=== PATIENT | female | born 1995 | race Caucasian/White ===

== ENCOUNTER 2019-12-02 17:48 | Emergency (ER) | payer BC, SELFPAY ==
[2019-12-02 17:49] VITALS: BP 116/69; PULSE 95; RESP 18; TEMP 36.3; O2SAT 98; BMI 35.9
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
[2019-12-02 18:37] LABS: Anion Gap 3 (5-15); BUN 9 mg/dL (7-18); BUN/Creat Ratio 10.9 RATIO (10-20); Calcium,Total 9.7 mg/dL (8.5-10.1); Chloride 108 mmol/L (98-107); Creatinine, Serum 0.82 mg/dL (0.55-1.02); EST Glomerular Filtration Rate 92 mL/min (>60); Est Glom Filt Rate - Afr Amer 111 mL/min (>60); Estimated Creatinine Clearance 92.93 ml/min; Glucose 83 mg/dL (74-106); Potassium 3.6 mmol/L (3.5-5.1); Sodium Level 139 mmol/L (136-145)
[2019-12-02 18:55] LABS: Amphetamine Urine VISTA NEGATIVE (<1000 ng/mL); Barbiturate Urine VISTA NEGATIVE (< 200 ng/mL); Benzodiazepine Urine VISTA NEGATIVE (< 200 ng/mL); Cocaine Urine VISTA NEGATIVE (< 300 ng/mL); Ecstacy Urine VISTA NEGATIVE (< 500 ng/mL); Methadone Urine VISTA NEGATIVE (< 300 ng/mL); PCP Urine VISTA NEGATIVE (< 25 ng/mL); THC Urine VISTA POSITIVE (< 50 ng/mL); Vista UDS pH Range 6
[2019-12-02 18:59] LABS: Absolute Lymphocyte Count 2.52 X10^3/uL (0.83-4.51); Basophil# 0.05 X10^3/uL; Basophil% 0.4 % (0-1); Eosinophil# 0.07 X10^3/uL; Eosinophils% 0.6 % (0-5); Hematocrit 43.7 % (37-47); Lymphocyte # 2.52 X10^3/ul (4.0); Lymphocyte % 22.1 % (19-41); Mean Corpuscular Hgb 27.8 pg (27.0-32.0); Mean Corpuscular Volume 86.7 fL (81-99); Mean Platelet Vol. 9.8 fl (6.2-12.0); Monocyte# 0.74 X10^3/uL; Monocyte% 6.5 % (0-10); NRBC Flagged by Analyzer 0 % (0-5); Neutrophil # 8.02 X10^3/uL (2.7-7.7); Neutrophil % 70.2 % (47-70); Platelet Count 322 K/mm3 (150-450); RBC Distribution Width SD 43.9 fl (35.1-43.9); Red Blood Count 5.04 M/mm3 (4.2-5.4); White Blood Count 11.4 K/mm3 (4.4-11.0)
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
[2019-12-02 19:34] LABS: Internal QC Validated? YES +Cl - CLEAR BKGD; Pregnancy, Serum, hCG Quali. NEGATIVE Negative
[2019-12-02 19:35] LABS: Alcohol, Blood (Medical)-Serum < 3.0 mg/dL
[2019-12-02 19:39] VITALS: RESP 18
--- NOTE | 2019-12-02 19:42 | ED.DEP ---
ED Disposition - Plan for ED Patient: Instructions: ED Depression Referrals: Care Physician,No Primary [Primary Care Provider] - Counseling,Center [GROUP OF PHYSICIANS] -
== END 2019-12-02 19:58 | disposition home or self-care (01) ==
LOC: ED 18:54
PROVIDERS: Emergency Provider Emergency Medicine
DX: F32.9 Major depressive disorder, single episode, unspecified (principal); F12.90 Cannabis use, unspecified, uncomplicated; R45.851 Suicidal ideations
CPT/HCPCS: 36415; 80048; 80307; 80320; 84703; 85025; 99282; G0480

== ENCOUNTER 2023-06-19 13:41 | Emergency (ER) | payer BC, SELFPAY ==
[2023-06-19 13:41] VITALS: BP 116/102; PULSE 109; RESP 16; TEMP 36.6; O2SAT 98; BMI 36.0
[2023-06-19 14:32] VITALS: BP 116/64; PULSE 94; RESP 14; O2SAT 98
[2023-06-19] MEDS: 0.9% Normal Saline (1000mL) 1,000 ML 1000 ML IV (15:10)
[2023-06-19] MEDS: 0.9% Normal Saline (1000mL) 1,000 ML 150 ML IV (15:25)
[2023-06-19 15:26] LABS: Absolute Lymphocyte Count 2.44 X10^3/uL (0.83-4.51); Absolute Neutrophil Count 5.7 X10^3/uL (2.0-7.7); Basophil# 0.07 X10^3/uL; Basophil% 0.8 % (0-1); Eosinophil# 0.09 X10^3/uL; Hematocrit 42.9 % (37-47); Hemoglobin 13.7 g/dL (12.0-15.0); Lymphocyte # 2.44 X10^3/ul (0.83-4.51); Lymphocyte % 27.2 % (19-41); Mean Corp Hgb Conc 31.9 g/dL (32-36); Mean Corpuscular Hgb 27.6 pg (27.0-32.0); Mean Corpuscular Volume 86.5 fL (81-99); Mean Platelet Vol. 9.5 fl (6.2-12.0); Monocyte% 6.7 % (0-10); NRBC Flagged by Analyzer 0 % (0-5); Neutrophil # 5.74 X10^3/uL (2.7-7.7); Neutrophil % 64.1 % (47-70); Platelet Count 282 K/mm3 (150-450); RBC Distribution Width CV 13.3 % (11.6-14.6); RBC Distribution Width SD 41.4 fl (35.1-43.9); Red Blood Count 4.96 M/mm3 (4.2-5.4)
[2023-06-19 15:36] LABS: Internal QC Validated? YES +Cl - CLEAR BKGD; Pregnancy, Serum, hCG Quali. NEGATIVE Negative
[2023-06-19 15:40] LABS: Anion Gap 3 (5-15); BUN 12 mg/dL (7-18); BUN/Creat Ratio 17.1 RATIO (10-20); Calcium,Total 9.3 mg/dL (8.5-10.1); Chloride 109 mmol/L (98-107); EST Glomerular Filtration Rate 107 mL/min (>60); Est Glom Filt Rate - Afr Amer 130 mL/min (>60); Estimated Creatinine Clearance 132.57 ml/min; Glucose 88 mg/dL (74-106); Potassium 4.6 mmol/L (3.5-5.1); Sodium Level 139 mmol/L (136-145)
[2023-06-19 16:00] VITALS: BP 114/71; PULSE 83; RESP 14; O2SAT 99
--- NOTE | 2023-06-19 16:00 | US_ITS ---
STUDY: ULTRASOUND TRANSVAGINAL CLINICAL: Female, 27 years old. menorrhagia TECHNIQUE: Transvaginal COMPARISON: None. FINDINGS: Normal uterine size measuring 8.2 x 4.6 x 3.8 cm in maximal craniocaudal dimension. There are no myometrial masses. Endometrial echoes in the lower uterine segment measure as much as 17 mm and are heterogeneous and irregular possibly with small cystic structures. This could be thrombus/hematoma. Primary endometrial process is not excluded and direct visualization/sampling is recommended. Normal right ovary, measuring 2.7 x 1.9 x 1.3 cm. There are multiple follicles without a dominant cyst. Normal blood flow. Normal left ovary, measuring 2.4 x 2.0 x 1.8 cm. There are multiple follicles without a dominant cyst. Normal blood flow. There is mild free fluid in the pelvis. Polycystic ovary disease: No. US/Transvaginal Non- IMPRESSION: Heterogeneous thickened and irregular endometrial echoes in the right lower uterine segment. This requires direct visualization and sampling should be considered. Electronically Signed: Harry Leonard MD at 18:08 EDT ,
--- NOTE | 2023-06-19 18:26 | ED.VIS.FEGU ---
HPI HPI - Female History of Present Illness Chief Complaint: Vag Bleeding Informant: patient Narrative Narrative: Patient present secondary vaginal bleeding. She states her last menstrual cycle started on May 23 and she has been bleeding ever since. She describes heavy bleeding going through several pads and passing clots. She presents today because she feels fatigued and somewhat lightheaded. She is also complaining of increased cramping. Patient has followed with Rosio Waldron at the [facility] office. She states she sent them a message to get an appointment shortly after her symptoms started, over has not heard back. PFSH PFSH Medical History no medical history no medical history Home Medications NK 12/02/19 [History Last Taken Unknown] Allergy/AdvReac Type Severity Reaction Status Date / Time No Known Allergies Allergy Verified 06/19/23 13:44 Social History Smoking Status: Current some day smoker tobacco type: cigarettes ROS ROS ED Constitutional Constitutional ED: Denies chills or fever(s) Eyes Eyes: Denies change in vision or discharge from eye(s) ENT ENT ED: Denies discharge from eye(s), rhinorrhea or sore throat Cardiovascular Cardiovascular: Denies chest pain or palpitations Respiratory/Chest Respiratory/Chest: Denies cough or dyspnea Gastrointestinal Gastrointestinal: Reports abdominal pain; Denies diarrhea, nausea or vomiting Genitourinary Genitourinary ED: Denies dysuria Musculoskeletal Musculoskeletal: Denies back pain or extremity pain Integumentary Denies Abrasions or rash Neurologic Neurologic: Reports weakness; Denies headache(s) Psychiatric Psychiatric: Denies anxiety or depression Allergic/Immunologic Allergic/Immunologic ED: Denies lip swelling or urticaria EXAM Physical Exam Const Vital Signs: 06/19/23 13:41 06/19/23 14:32 06/19/23 16:00 Temperature 98 F Temperature Source Temporal Pulse Rate 109 H 94 83 Respiratory Rate 16 14 14 Blood Pressure 116/102 H 116/64 114/71 Blood Pressure Mean 106 81 85 Pulse Ox 98 98 99 Oxygen Delivery Method Room Air Room Air Room Air Positive well nourished and well developed General Appearance ED: well developed HEENT Reports normocephalic and head/scalp atraumatic Eyes PERRL and EOMs intact bilaterally Neck supple Chest Wall inspection of chest normal and palpation of chest normal Resp normal respiratory effort and clear to auscultation bilaterally Cardio regular rate and regular rhythm GI GI Narrative: Abdomen soft with mild tenderness in the lower abdomen. No guarding or rebound. Active bowel sounds are noted. Palpation: soft Back/Spine no CVA tenderness Extremity normal to inspection Neuro oriented x3 and no sensory deficits noted Sensorium / Orientation: alert Motor Exam: strength 5/5 throughout Psych mental status grossly normal Skin no rashes or lesions noted MDM MDM MDM Narrative Medical decision making narrative: Patient given a liter of IV fluids. Labwork obtained to evaluate for leukocytosis, anemia, and electrolyte derangement. Pelvic ultrasound obtained to evaluate for endometrial thickness or mass. Lab Data Labs: Laboratory Results - last 24 hr 06/19/23 15:11 WBC 9.0 RBC 4.96 Hgb 13.7 Hct 42.9 MCV 86.5 MCH 27.6 MCHC 31.9 L RDW Std Deviation 41.4 RDW Coeff of Elizabeth 13.3 Plt Count 282 MPV 9.5 Immature Gran % (Auto) 0.200 Neut % (Auto) 64.1 Lymph % (Auto) 27.2 [place] % (Auto) 6.7 Eos % (Auto) 1.0 Baso % (Auto) 0.8 Absolute Neuts (auto) 5.7 Absolute Lymphs (auto) 2.44 Nucleated RBC % 0 Sodium 139 Potassium 4.6 Chloride 109 H Carbon Dioxide 27.0 Anion Gap 3 L BUN 12 Creatinine 0.70 Estim Creat Clear Calc 132.57 Est GFR (MDRD) Af Amer 130 Est GFR (MDRD) Non-Af 107 BUN/Creatinine Ratio 17.1 Glucose 88 Calcium 9.3 Serum , Qual NEGATIVE Radiography Diagnostic Testing: Clinical Impression(s) from Imaging Studies Transvaginal US 06/19/23 16:00 IMPRESSION: Heterogeneous thickened and irregular endometrial echoes in the right lower uterine segment. This requires direct visualization and sampling should be considered. Electronically Signed: Harry Leonard MD at 18:08 EDT , Treatment and Re-Evaluation Narrative: CBC is normal white count at 9 with a hemoglobin of 13.7. This is consistent with her prior values. Chemistry studies are unremarkable. test is negative. Pelvic ultrasound reveals a heterogeneous thickened and irregular endometrial echo in the right lower uterine segment. This requires direct visualization and sampling should be considered. Test results discussed with Dr. Tim, on-call for [facility]. With patient having stable vital signs and normal hemoglobin she will be discharged to call the office tomorrow morning for close follow-up. Patient comfortable with this plan. Discharge Plan Triage Chief Complaint: Vag Bleeding ED Provider: Olive Schreiber Dx/Rx/DC Orders Clinical Impression: Menorrhagia Instructions: ED Dysfunctional Uterine Bleeding Prescriptions: No Action NK Primary Care Provider: Rosio Reynolds Referrals: Rosio Reynolds MD [Primary Care Provider] - Rosio Waldron NP, SHADOWGRAPH SCALE OPERATOR-C [Non-Staff] - As soon as possible Disposition Disposition: Home, Self Care
[2023-06-19 18:49] VITALS: BP 127/66; PULSE 76; RESP 15; TEMP 36.4; O2SAT 99
== END 2023-06-19 18:52 | disposition home or self-care (01) ==
PROVIDERS: Emergency Provider Emergency Medicine; PCP Family Medicine; Visit Provider Emergency Medicine
DX: N92.0 Excessive and frequent menstruation with regular cycle (principal); F17.210 Nicotine dependence, cigarettes, uncomplicated
CPT/HCPCS: 76830; 80048; 84703; 85025; 96360; 96361; 99283; J7030; A4216

== ENCOUNTER 2025-01-12 09:35 | Emergency (ER) | payer SELFPAY ==
[2025-01-12 09:36] VITALS: BP 140/89; PULSE 65; RESP 16; TEMP 36.3; O2SAT 97; BMI 38.8
--- NOTE | 2025-01-12 10:01 | CT_ITS ---
PROCEDURE: ABDOMEN/PELVIS WITHOUT CONT 01/12/2025 REASON FOR EXAM: LEFT FLANK PAIN TECHNIQUE: Procedure Code: [id number] Modality: CT Procedure: ABDOMEN/PELVIS WITHOUT CONT Noncontrast technique limits evaluation of the abdominal and pelvic viscera. Coronal and Sagittal reconstruction series were provided. One or more dose reduction techniques were used (e.g., Automated exposure control, adjustment of the mA and/or kV according to patient size, use of iterative reconstruction technique). RADIATION DOSE SUMMARY: DLP: 738 mGycm FINDINGS: The lung bases are clear. There is no focal consolidation or effusion. The unenhanced appearance of the liver, pancreas, gallbladder, biliary tree, spleen and adrenal glands reveals no abnormality. No retroperitoneal lymphadenopathy is present. There is mild left hydronephrosis with left hydroureter and periureteral stranding. This is secondary to a small stone in the distal left ureter measuring 4.5 mm. Additional small 2-3 mm punctate calculi noted within both kidneys. There is a nonobstructing stone in the lower pole of the right kidney measuring 4 mm. The bowel is unremarkable without any obstruction or acute inflammatory process. Normal appendix is seen in the right lower quadrant. The uterus and adnexa are within normal limits. Urinary bladder is decompressed. Osseous structures reveal no destructive process or acute fracture. There is mild scoliosis. Transitional anatomy seen on the right with the right transverse process articulating with the sacrum. No soft tissue abnormality CT/Abdomen/Pelvis without Cont IMPRESSION: 4.5 mm stone in the distal left ureter with mild left hydronephrosis. Bilateral nonobstructing renal calculi. Reading Location: [facility]
--- NOTE | 2025-01-12 10:02 | EDS_ITS ---
HPI History of Present Illness Chief Complaint: Back Informant: patient Onset/Context/Timing Onset: Today Context: Sudden Onset Timing: Continuous Quality: Sharp, stabbing Location: Left flank Worsened by: Nothing Relieved by: Nothing Narrative Narrative: Patient presents with left flank and back pain that began earlier this morning. Patient states she woke up with it. Patient describes the pain as stabbing and sharp. Patient states pain radiates to her lower abdomen. Patient states nothing makes it worse and nothing makes it better. Patient admits to some subjective chills. Patient admits to nausea and vomiting. Patient admits to some urinary urgency but denies any dysuria or hematuria. Patient denies any diarrhea. PFSH PFSH Home Medications ?Medication ?Instructions ?Recorded ?Last Taken ?Type hydrocodone-acetaminophen 5-325mg 1 tab PO Q6H PRN PRN Pain 3 days 01/12/25 Unknown Rx 5mg-325mg #10 TABLETS Allergy/AdvReac Type Severity Reaction Status Date / Time No Known Allergies Allergy Verified 01/12/25 09:37 Surgical History Hx of tympanostomy tubes Social History (Updated 01/12/25 @ 10:[address] Paras Knowles, DO) Smoking Status: Current some day smoker tobacco type: cigarettes substance use type: marijuana ROS ROS ED Constitutional Constitutional ED: Reports chills and subjective; Denies fever(s) Eyes Eyes: Denies blurry vision or change in vision ENT ENT ED: Denies rhinorrhea or sore throat Cardiovascular Cardiovascular: Denies chest pain or palpitations Respiratory/Chest Respiratory/Chest: Denies cough or dyspnea Gastrointestinal Gastrointestinal: Reports nausea and vomiting Genitourinary Genitourinary ED: Denies dysuria or hematuria Musculoskeletal Musculoskeletal: Reports back pain; Denies neck pain Integumentary Denies abscess or rash Neurologic Neurologic: Denies headache(s) or weakness Allergic/Immunologic Allergic/Immunologic ED: Denies mouth swelling or urticaria EXAM Physical Exam Const Vital Signs: 01/12/25 09:36 01/12/25 11:57 Temperature 97.3 F L Temperature Source Temporal Pulse Rate 65 83 Respiratory Rate 16 16 Blood Pressure 140/89 H 124/69 H Blood Pressure Mean 106 87 Pulse Ox 97 100 Oxygen Delivery Method Room Air Room Air Positive well nourished and well developed General Appearance ED: well developed and NAD HEENT Reports moist mucous membranes Neck supple and no JVD Resp normal respiratory effort and clear to auscultation bilaterally Cardio regular rate and regular rhythm GI non-distended Palpation: soft and tender LLQ and suprapubic; Negative for guarding or rebound tenderness present Back/Spine General Back: CVA tenderness left Neuro oriented x3, CN's II-XII intact bilaterally and no sensory deficits noted Sensorium / Orientation: alert Motor Exam: strength 5/5 throughout Psych mental status grossly normal MDM MDM MDM Narrative Medical decision making narrative: Differential diagnosis includes ureteral calculus, pyelonephritis, urinary tract infection, ectopic , electrolyte abnormality, dehydration, diverticulitis, colitis, and anxiety. CBC will be obtained to assess for leukocytosis and anemia. Comprehensive metabolic profile will be obtained to assess for hepatic function, renal function, and electrolyte abnormality. Urinalysis will be obtained to assess for urinary tract infection and hematuria. Serum hCG will be obtained to assess for . CT scan of the abdomen and pelvis will be obtained to assess for ureteral calculus, pyelonephritis, diverticulitis, and colitis. Lab Data Attestation: I reviewed the patient's lab results. Lab results narrative: CBC was reviewed. There is a mild leukocytosis of 11.9. The remainder is within normal limits. Comprehensive metabolic profile was reviewed and was within normal limits. Serum hCG was reviewed and was negative. Urinalysis was reviewed. There is no evidence of urinary tract infection. Occult blood was 250 but there were 0 red blood cells noted. Labs: Laboratory Results - last 24 hr 01/12/25 01/12/25 10:08 10:10 WBC 11.9 H RBC 4.93 Hgb 13.9 Hct 40.9 MCV 83.0 MCH 28.2 MCHC 34.0 RDW Std Deviation 40.1 RDW Coeff of Elizabeth 13.2 Plt Count 310 MPV 9.7 Immature Gran % (Auto) 0.200 Neut % (Auto) 79.2 H Lymph % (Auto) 14.1 L [place] % (Auto) 5.8 Eos % (Auto) 0.3 Baso % (Auto) 0.4 Absolute Neuts (auto) 9.4 H Absolute Lymphs (auto) 1.68 Nucleated RBC % 0 Sodium 140 Potassium 3.9 Chloride 106 Carbon Dioxide 19.4 L Anion Gap 15 BUN 13 Creatinine 0.82 Estim Creat Clear Calc 120.23 Est GFR (MDRD) Non-Af 100 BUN/Creatinine Ratio 15.7 Glucose 130 H Calcium 9.9 Total Bilirubin 0.31 AST 21 ALT 27 Alkaline Phosphatase 70 Total Protein 7.6 Albumin 4.7 Globulin 2.9 Albumin/Globulin Ratio 1.6 Serum , Qual NEGATIVE Urine Color Yellow Urine Clarity Cloudy Urine pH 5.0 Ur Specific Mallard 1.030 Urine Protein 30 H Urine Glucose (UA) Normal Urine Ketones 15 H Urine Occult Blood 250 H Urine Nitrite Negative Urine Bilirubin Negative Urine Urobilinogen 1 H Ur Leukocyte Esterase Negative Urine RBC 0 SEEN Urine WBC 0 SEEN Ur Squamous Epith Cells 0-5 SEEN Amorphous Sediment 3+ Urine Bacteria 0 SEEN Urine Mucus 0 SEEN Radiography Diagnostic Testing: Clinical Impression(s) from Imaging Studies Abdomen/Pelvis CT 01/12/25 10:01 IMPRESSION: 4.5 mm stone in the distal left ureter with mild left hydronephrosis. Bilateral nonobstructing renal calculi. Reading Location: [facility] CT scan of the abdomen and pelvis was obtained. There is a 4.5 mm stone in the left distal ureter with mild left hydronephrosis. There are bilateral nonobstructing renal calculi. There is no free air or free fluid. There is no other acute abnormality noted. This was interpreted by the radiologist and was also independently reviewed by myself. Treatment and Re-Evaluation :: Patient was given IV fluids, morphine, and Zofran. Patient was still having pain. Patient was given a dose of Toradol. Patient states her pain has markedly improved. Patient was advised of her findings. Patient was instructed to drink plenty of fluids. Patient was given a prescription for short course of Cord. Patient was advised that she could take ibuprofen as needed as well. Patient was instructed to follow-up with her primary care physician in 5 to 7 days. Patient was also given a referral for urology. Patient was instructed to return if worse in any way. Patient understood and was agreeable with the plan. All questions were answered. Discharge Plan Triage Chief Complaint: Back ED Provider: Paras Knowles Dx/Rx/DC Orders Clinical Impression: Calculus of distal left ureter, Elevated blood pressure reading Instructions: ED Kidney Stone with Pain Prescriptions: New hydrocodone-acetaminophen 5-325 mg tablet 1 tab PO Q6H PRN PRN (Reason: Pain) 3 Days Qty: 10 0RF Primary Care Provider: Care Physician,No Primary Referrals: Rosio Reynolds MD [Med Staff - Beef Killer, Family Practice] - 5-7 Days Pam Azar MD [Med Staff - Active Staff, Urology] - 3-5 Days if not improving Print Language: Belarusian Disposition Disposition: Home, Self Care
--- OUTSIDE RECORDS SUMMARY | 2025-01-12 10:10 | XMS RPT_ITS | CCD ---
Author Organization [facility] Care Team Providers Care Approver Name Role Phone Unavailable Primary Care Provider Rosio Mujica Primary Care Unavailable Olive Schreiber Attending Unavailable TRINIDAD RICHARDS Attending Unavailable SELF Referring Unavailable TRINIDAD RICHARDS Attending Unavailable TRINIDAD RICHARDS Referring Unavailable Unavailable Primary Care Provider MALIA Betancourt Attending Unavailable Medications Current Medications Medication Drug Class(es) Dates Sig (Normalized) Sig (Original) clindamycin 300 mg oral capsule (2 sources) Lincosamide Antibacterial Start: 05-29-2024 End: 06-05-2024 take 1 capsule by mouth twice daily clindamycin (Cleocin) 300 MG capsule Indications: Bacterial vaginosis Take 1 capsule (300 mg) by mouth 2 times daily for 7 days. 14 capsule 05/29/2024 06/05/2024 Active doxycycline hyclate 100 mg oral capsule (1 source) Tetracycline-class Drug Start: 05-31-2024 End: 06-07-2024 doxycycline (Vibramycin) 100 MG capsule Indications: Chlamydial infection Take 1 capsule (100 mg) by mouth 2 times daily for 7 days. Take with at least 8 ounces (large glass) of water, do not lie down for 30 minutes after EPT Waldemar Ascencio Jr. 03-28-1997 NKDA 14 capsule 05/31/2024 06/07/2024 Active doxylamine succinate 25 mg oral tablet (3 sources) Start: 05-29-2024 End: 06-28-2024 take 1 tablet by mouth once daily as needed for nausea doxylamine (Unisom) 25 MG tablet Indications: Missed menses , test positive Take 1 tablet (25 mg) by mouth Nightly as needed for nausea. 30 tablet 3 05/29/2024 06/28/2024 Active multivitamin () 27-0.8 MG tablet (3 sources) Start: 05-29-2024 take 1 tablet by mouth once daily multivitamin () 27-0.8 MG tablet Indications: Missed menses , test positive Take 1 tablet by mouth daily. 90 tablet 4 05/29/2024 Active pyridoxine hydrochloride 25 mg oral tablet (3 sources) Start: 05-29-2024 End: 08-27-2024 take 1 tablet by mouth every eight hours pyridoxine (Vitamin B-6) 25 MG tablet Indications: Missed menses , test positive Take 1 tablet (25 mg) by mouth every 8 hours. 90 tablet 3 05/29/2024 08/27/2024 Active terconazole 8 mg/ml vaginal cream (2 sources) Azole Antifungal Start: 05-29-2024 End: 06-01-2024 terconazole (Terazol 3) 0.8 % vaginal cream Indications: Vaginal yeast infection Insert 1 applicator into the vagina Nightly for 3 days. 20 g 2 05/29/2024 06/01/2024 Active Completed/Discontinued Medications Medication Drug Class(es) Dates Sig (Normalized) Sig (Original) azithromycin 500 mg oral tablet (1 source) Macrolide Antimicrobial Start: 05-29-2024 End: 05-29-2024 take 2 tablets by mouth once azithromycin (Zithromax) 500 MG tablet Indications: Chlamydia infection Take 2 tablets (1,000 mg) by mouth Once for 1 dose. 2 tablet 05/29/2024 05/29/2024 ethinyl estradiol 0.035 mg / norethindrone 1 mg oral tablet (3 sources) Estrogen Start: 06-06-2018 take 1 tablet by mouth once daily, then take [id number] 7 tablet by mouth once Norethindrone-Eth Estradiol (ORTHO-NOVUM , ,) 1-35 mg-mcg per tablet Indications: Breakthrough bleeding on OCPs Take 1 tablet by mouth once daily. 3 Package 3 06/06/2018 Active Comment on above: Take 1 tablet by mena th once daily. norethindrone acetate 5 mg oral tablet (3 sources) Start: 06-21-2023 End: 07-01-2023 take 1 tablet by mouth once daily norethindrone (AYGESTIN) 5 mg tablet Take 1 tablet by mouth once daily for 10 days. 10 tablet 0 06/21/2023 Active Comment on above: Take 1 tablet by mena th once daily for 10 days. Problems Problem Classification Problem Date Documented Date Episodic/Chronic Bacterial infection; unspecified site (2 sources) Chlamydial infection; Translations: [Chlamydial infection, unspecified] 05-29-2024 Episodic Inflammatory diseases of female pelvic organs (1 source) Bacterial vaginosis; Translations: [Acute vaginitis] 05-29-2024 Episodic Menstrual disorders (8 sources) Menorrhagia; Translations: [Excessive and frequent menstruation with regular cycle] Onset: 06-22-2023 06-19-2023 Chronic Mycoses (1 source) Candidiasis of vagina; Translations: [Vaginal yeast infection] 05-29-2024 Episodic Other female genital disorders (1 source) Vaginal discharge; Translations: [Other specified noninflammatory disorders of vagina] 05-29-2024 Episodic Other and delivery including normal (3 sources) test positive; Translations: [Encounter for test, result positive] Onset: 05-29-2024 05-29-2024 Episodic Other screening for suspected conditions (not mental disorders or infectious disease) (2 sources) Patient encounter status; Translations: [Encounter for screening for malignant neoplasm of cervix] 06-21-2023 Episodic Results Test Name Value Interpretation Reference Range Facility Progress Noteon 05-31-2024 Progress Note EPT sent for partner. Normal [facility] ABO RH BLOOD TYPEon 05-29-19 25 ABO GROUPING A Normal [facility] Comment on above: Performed By: #### L [id number] #### Mechanist: ROSIO CORONEL ([id number]) [facility] ([facility]) [address] [place] [address] [place] RH TYPE IN BLOOD Negative Normal [facility] Comment on above: Performed By: #### L [id number] #### Mechanist: ROSIO CORONEL ([id number]) [facility] ([facility]) [address] [place] [address] [place] ABO and Rh group panel (Bld) on 05-29-2024 ABO group Nom (Bld) A [facility] D Ag Ql (RBC) Negative [facility] Bacterial vaginosis and vagi nitis rRNA panel Probe (Vag fld)on 05-29-2024 Bacterial vaginosis Ql (Vag fld) [Interp] Detected Abnormal Not Detected [facility] C. glabrata DNA SERA+probe Ql (Vag fld) Not detected Not Detected [facility] Sita sp DNA SERA+probe Ql (Vag fld) Detected Abnormal Not Detected [facility] Interpretation and review of laboratory results Abnormal [facility] T. vaginalis DNA SERA+probe Ql (Vag fld) Not detected Not Detected [facility] Methodology: real-ti me PCR A negative result does not preclude a possible infection. This assay can detect the Sita species C. albicans, C. tropicalis, C. parapsilosis, and C. dubliniensis but does not differentiate among them. The assay also detects C. glabrata and C. krusei, but does not differentiate between them. Results should be interpreted in conjunction with other clinical data. This test has not been validated for use with specimens collected by patients at home. This test is intended for medical purposes only and is not valid for the evaluation of suspected sexual abuse or for other forensic purposes. [facility] CHLAMYDIA/GONORRHEAon 2024 CHLAMYDIA/GONORRHEA NEISSERIA GONORRHOEA E DNA PROBE Reference Not Detected Not Detected CHLAMYDIA TRACHOMATIS DNA PROBE (A) Reference Detected Not Detected ORDER COMMENTS: (A) Methodology: real-time PCR This test is intended for medical purposes only and is not intended for the evaluation of suspected sexual abuse or for other forensic purposes. In certain contexts, culture may be required to meet applicable laws and regulations for diagnosis of C. trachomatis and N. gonorrhoeae infections. Per 2014 CDC recommmendations, this test does not include confirmation of positive results by an alternative nucleic acid target. A negative result does not exclude the possibility of infection. A result of invalid indicates that a new specimen should be collected if clinically indicated. Normal [facility] Comment on above: Performed By: #### L [id number] #### Mechanist: ROSIO CORONEL ([id number]) [facility] ([facility]) [address] [place] [address] HCG QUANTITATIVE BLOODon HCG QUANTITATIVE 2.8 mIU/mL Normal Females <5 [facility] Comment on above: Result Comment: JEFF R COMMENTS: Values in should double every 2 to 3 days for the first 6 weeks. Elevated concentrations of human chorionic gonadotropin (hCG) measured in the first trimester of are observed in normal , but may serve as an indication of chorionic carcinoma, hydatiform mole, or multiple . Decreasing hCG concentrations indicate threatened or missed , recent termination of , ectopic , gestosis or intrauterine . Pooja- and postmenopausal females may have detectable hCG concentrations (< or = to 14 mIU/mL) due to pituitary production of hCG. Serum follicle-stimulating hormone measurement may aid in ruling-out in this population. Cutoffs of greater than 20 to 45 mIU/mL have been suggested and are method dependent. False-elevations (called phantom human chorionic gonadotropin: hCG) may occur with patients who have human antianimal or heterophilic antibodies. Some specimens may not dilute linearly due to abnormal forms of hCG. Elevated hCG concentrations not associated with are found in patients with other diseases such as tumors of the germ cells, ovaries, bladder, pancreas, stomach, lungs, and liver. This test is not intended to detect or monitor tumors or gestational trophoblastic disease. Performed By: #### L [id number] #### Mechanist: ROSIO CORONEL ([id number]) [facility] ([facility]) [address] [place] [address] N. gonorrhoeae DNA SERA+probe Ql (Cervical mucus)on 05-29-2024 C. trachomatis DNA SERA+probe Ql (Unsp spec) Detected Abnormal Not Detected [facility] Interpretation and review of laboratory results Abnormal [facility] N gonorrhoeae, DNA Probe Not detected Not Detected [facility] Methodology: real-ti me PCR This test is intended for medical purposes only and is not intended for the evaluation of suspected sexual abuse or for other forensic purposes. In certain contexts, culture may be required to meet applicable laws and regulations for diagnosis of C. trachomatis and N. gonorrhoeae infections. Per 2014 CDC recommmendations, this test does not include confirmation of positive results by an alternative nucleic acid target. A negative result does not exclude the possibility of infection. A result of invalid indicates that a new specimen should be collected if clinically indicated. [facility] Office Visiton 05-29-2024 Follow-up visit [id number] Merritt Ascencio 1995 F Date Provider Department Center 05/29/2024 MALIA DE LEON [facility] WOM None Family History Problem Relation Age of Onset Colon cancer Maternal Grandmother Breast cancer Neg Hx Cervical cancer Neg Hx Ovarian cancer Neg Hx Uterine cancer Neg Hx Family Status - Relation Status Age at Maternal Grandmother Neg Hx Level of Service:49976 DC OFFICE/OUTPATIENT NEW LOW MDM 30 MINUTES (SA) Reason for Visit and Comments: Amenorrhea [296694] - LMP 03-24-2024 , positive test at home on 05-12-2024 , had some vaginal bleeding starting on 05-14-2024 lasted 4 days , toke another four test after the bleeding was done still was positive test Normal [facility] Progress Noteon 05-29-2024 Progress Note Pt states not curren tly taking any medications. A deli manager was offered to be present during her exam. The patient: declined Pt blood drawn on left arm pt tolerated well. [place] form send to lab. See media Normal [facility] Progress Note Chief Complaint Patient presents with Amenorrhea LMP 03-24-2024 , positive test at home on 05-12-2024 , had some vaginal bleeding starting on 05-14-2024 lasted 4 days , toke another four test after the bleeding was done still was positive test Patient's last menstrual period was 03/24/2024. Allergies: No Known Allergies Medications: No current outpatient medications on file prior to visit. No current facility-administered medications on file prior to visit. HPI: HPI Here for [employer] exam to confirm . Denies bleeding or pain now but did have 4 days of bleeding earlier this month C/O vaginal discharge LMP 03-24-25 FRANCESCA 12-29-24 9w 3d today ROS: Review of Systems Constitutional: Negative. HENT: Negative. Respiratory: Negative. Genitourinary: Positive for vaginal bleeding and vaginal discharge. Neurological: Negative. Physical exam: BP 123/80 Pulse 98 Temp 36.8 ?C (98.3 ?F) (Temporal) Wt 220 lb (99.8 kg) LMP 03/24/2024 Physical Exam Genitourinary: General: Normal vulva. Exam position: Lithotomy position. Vagina: Normal. Cervix: Normal. Uterus: Normal. Adnexa: Right adnexa normal and left adnexa normal. Assessment and Plan: Fanta was seen today for amenorrhea. Diagnoses and all orders for this visit: Missed menses (Primary) - hCG, quantitative - ABO/Rh - US OB less than 14 weeks early; Future - multivitamin () 27-0.8 MG tablet; Take 1 tablet by mouth daily. - pyridoxine (Vitamin B-6) 25 MG tablet; Take 1 tablet (25 mg) by mouth every 8 hours. - doxylamine (Unisom) 25 MG tablet; Take 1 tablet (25 mg) by mouth Nightly as needed for nausea. test positive - hCG, quantitative - ABO/Rh - US OB less than 14 weeks early; Future - multivitamin () 27-0.8 MG tablet; Take 1 tablet by mouth daily. - pyridoxine (Vitamin B-6) 25 MG tablet; Take 1 tablet (25 mg) by mouth every 8 hours. - doxylamine (Unisom) 25 MG tablet; Take 1 tablet (25 mg) by mouth Nightly as needed for nausea. Vaginal discharge - Chlamydia/Gonorrhea - Vaginitis Panel MVP PCR Cervical cancer screening - Pap Smear US dates next available then OB intake then new OB Follow up if symptoms worsen or fail to improve. Normal [facility] VAGINITIS PANEL MVP PCRon VAGINITIS PANEL MVP PCR BACTERIAL VAGINOSIS MVP PCR (A) Reference Detected Not Detected SITA SPP MVP PCR (A) Reference Detected Not Detected SITA GLABRATA/KRUSEI MVP PCR Reference Not Detected Not Detected TRICHOMONAS VAGINALIS MVP PCR Reference Not Detected Not Detected ORDER COMMENTS: Methodology: real-time PCR A negative result does not preclude a possible infection. This assay can detect the Sita species C. albicans, C. tropicalis, C. parapsilosis, and C. dubliniensis but does not differentiate among them. The assay also detects C. glabrata and C. krusei, but does not differentiate between them. Results should be interpreted in conjunction with other clinical data. This test has not been validated for use with specimens collected by patients at home. This test is intended for medical purposes only and is not valid for the evaluation of suspected sexual abuse or for other forensic purposes. Normal [facility] Comment on above: Performed By: #### L [id number] #### Mechanist: ROSIO CORONEL ([id number]) [facility] ([facility]) [id number] [facility] hCG, quantitativeon 05-29-19 25 HCG.beta subunit Qn 2.8 m[IU]/mL Females <5 mIU/mL [facility] Values in should double every 2 to 3 days for the first 6 weeks. Elevated concentrations of human chorionic gonadotropin (hCG) measured in the first trimester of are observed in normal , but may serve as an indication of chorionic carcinoma, hydatiform mole, or multiple . Decreasing hCG concentrations indicate threatened or missed , recent termination of , ectopic , gestosis or intrauterine . Pooja- and postmenopausal females may have detectable hCG concentrations (< or = to 14 mIU/mL) due to pituitary production of hCG. Serum follicle-stimulating hormone measurement may aid in ruling-out in this population. Cutoffs of greater than 20 to 45 mIU/mL have been suggested and are method dependent. False-elevations (called phantom human chorionic gonadotropin: hCG) may occur with patients who have human antianimal or heterophilic antibodies. Some specimens may not dilute linearly due to abnormal forms of hCG. Elevated hCG concentrations not associated with are found in patients with other diseases such as tumors of the germ cells, ovaries, bladder, pancreas, stomach, lungs, and liver. This test is not intended to detect or monitor tumors or gestational trophoblastic disease. [facility] ALVINCEDRIC ([id number]) 1995 F Date Time Provider Department 07/12/23 TRINIDAD RICHARDS During your visit today, we recorded the following information about you: Trinidad Richards MD 07/12/2023 9:18 AM Signed I was unable to reach Cedric directly. Please let patient know that her TSH and prolactin levels are normal. MD Hayde Szymanski Jennifer, SHELLEY 07/12/2023 9:21 AM Signed Patient called back. Notified. Olive Lock RN Allergies As of Date: 07/12/2023 (No Known Allergies) Date Reviewed: 07/10/2023 Reviewed by: Frida Kilgore LPN - Fully Assessed Prescriptions as of 07/12/2023 - norethindrone (AYGESTIN) 5 mg tablet Take 1 tablet by mouth once daily for 10 days. - Norethindrone-Eth Estradiol (ORTHO-NOVUM , ,) 1-35 mg-mcg per tablet Take 1 tablet by mouth once daily. Problem List As Of Date: 07/12/2023 (None) Encounter Status:Closed by OLIVE LOCK on 07/12/23 [facility] CNOVon 07-10-2023 CNOV Office Visit (OBGYWM ) CEDRIC ESQUIVEL ([id number]) 1995 F Date Time Provider Department 07/10/23 8:50 AM TRINIDAD RICHARDS OBGYWM During your visit today, we recorded the following information about you: Blood pressure Weight 90/60 92.6 kg Trinidad Richards MD 07/10/2023 9:48 AM Signed [employer] offered: Patient declines. Cedric Esquivel is a 28 year old female who presents for follow up subsequent to a 10 day course of progestin that arrested menses and then heavier than average flow flow for 4 days and now stopped entirely. . HPI: irregular cycles, TSH and prolactin pending OB History T0 L0 SAB0 IAB0 Ectopic0 Multiple0 Live Births0 [employer] History LMP: 05/23/2023, Having periods Age at Menarche: Age at First : Age at Menopause: [employer] History Comments: Sexual Activity: Yes; Male Contraception: Condom PAST MEDICAL HISTORY Diagnosis Date Chlamydia 02/08/2019 PAST SURGICAL HISTORY Procedure Laterality Date EAR SURGERY HX FAMILY HISTORY Problem Relation Age of Onset other (Irregular periods) Mother Had a hysterectomy at 30. No Known Problems Paternal Grandfather other (PCOS) Paternal Aunt other (pcos) Maternal Aunt Social History Tobacco Use Smoking status: Never Smokeless tobacco: Never Tobacco comments: Pt vapes Vaping Use Vaping Use: current everyday user Substances: Nicotine Substance Use Topics Alcohol use: No Current Outpatient Medications Medication Sig norethindrone (AYGESTIN) 5 mg tablet Take 1 tablet by mouth once daily for 10 days. Norethindrone-Eth Estradiol (ORTHO-NOVUM , 28,) 1-35 mg-mcg per tablet Take 1 tablet by mouth once daily. (Patient not taking: Reported on 06/21/2023) No current facility-administered medications for this visit. Allergies As of Date: 07/10/2023 (No Known Allergies) Fully Assessed 07/10/2023 REVIEW OF SYSTEMS Abdomen: No bloating, early satiety, indigestion, or increased flatulence. No abdominal pain, nausea, vomiting, diarrhea, or constipation. Bladder: No dysuria, gross hematuria, urinary frequency, urinary urgency, or incontinence. Breast: No breast lumps, nipple d/c, overlying skin changes, redness or skin retraction. 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: N/A Allergies and current medication updated:Yes EXAM: Wt 204 lb 3.2 oz (92.6kg) LMP 05/23/2023 ASSESSMENT AND PLAN: Successful arrest of menses with aygestin TSH and prolactin RTO prn and annual ftfc.20m Trinidad Richards MD Allergies As of Date: 07/10/2023 (No Known Allergies) Date Reviewed: 07/10/2023 Reviewed by: Frida Kilgore LPN - Fully Assessed Reason for Visit: Follow Up [171] Primary Visit Diagnosis:Irregular menses [N92.6] Prescriptions as of 07/10/2023 - norethindrone (AYGESTIN) 5 mg tablet Take 1 tablet by mouth once daily for 10 days. - Norethindrone-Eth Estradiol (ORTHO-NOVUM 35, 28,) 1-35 mg-mcg per tablet Take 1 tablet by mouth once daily. Problem List As Of Date: 07/10/2023 (None) Encounter Status:Closed by TRINIDAD RICHARDS on 07/10/23 Normal [facility] Prolactin SerPl-mCncon 07-09 Prolactin [Mass/Vol] 9.9 ng/mL Normal 4.5-26.8 [facility] Comment on above: Order Comment: Dominic lamar Type: BLOOD SPECIMEN Ordering Facility: [facility] Address: [address] [place] [address] Result Comment: Prol actin test is performed using the [employer] Electrochemiluminescence Immunoassay method. Results obtained with different methods or kits cannot be used interchangeably. Performed By: #### 2 842-3, 3016-3 #### [facility] CLIA [id number] [address] [place] [address] [place] TSH SerPl-aCncon 07-10-2023 TSH Qn 1.290 m[IU]/L Normal 0.270-4.200 [facility] Comment on above: Order Comment: Dominic lamar Type: BLOOD SPECIMEN Ordering Facility: [facility] Address: [address] [place] [address] Result Comment: If t he patient is , TSH reference range varies by gestational period: First Trimester (weeks 9-12): 0.180-2.990 mIU/L Second Trimester: 0.110-3.980 mIU/L Third Trimester: 0.480-4.710 mIU/L Gary Moran et al. A Practical Approach for the Verifications and Determination of Site- and Trimester-Specific Reference Intervals for Thyroid Function tests in . Thyroid, 2019:29:3:412-420. Fernando Ornelas, et al. 2017 Guidelines of the [place] Thyroid Association for the Diagnosis and Management of Thyroid Disease during and the . Thyroid, 2017:27:3:315-389. Performed By: #### 2 842-3, 3016-3 #### [facility] CLIA [id number] [address] [place] [address] [place] CNOVon 06-21-2023 CNOV Office Visit (OBGYWM ) CEDRIC ESQUIVEL ([id number]) 1995 F Date Time Provider Department 06/21/23 8:20 AM TRINIDAD RICHARDS During your visit today, we recorded the following information about you: Blood pressure Weight Last Period 114/72 92.5 kg 05/23/23 Trinidad Richards MD 06/21/2023 9:45 AM Signed Cedric Esquivel is a 27 year old female who presents for problem visit of AUB for 1 month. LMP was 05-23-23 with bleeding daily since, with max flow 18 tasmpons/24 hrs. Slowed now. Occ passage of clots and occ bruising . HPI: Comes in today and notes still bleeding since 05/23/23. Bleeding varies in heaviness and has been light all this week. Menarche at age 15. Notes history of irregular menses for which she took OCP in past. Also notes history of trichomonas in 2017. Bisexual. Regular/daily intercourse since November and w/o contraception. 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 No Known Problems Paternal Grandfather other (PCOS) Paternal Aunt other (pcos) Maternal Aunt Social History Tobacco Use Smoking status: Never Smokeless tobacco: Never Vaping Use Vaping Use: current everyday user Substance Use Topics Alcohol use: No Current Outpatient Medications Medication Sig Norethindrone-Eth Estradiol (ORTHO-NOVUM , ,) 1-35 mg-mcg per tablet Take 1 tablet by mouth once daily. (Patient not taking: Reported on 06/21/2023) No current facility-administered medications for this visit. Allergies As of Date: 06/21/2023 (No Known Allergies) Fully Assessed 06/21/2023 REVIEW OF SYSTEMS Abdomen: No bloating, early satiety, indigestion, or increased flatulence. No abdominal pain, nausea, vomiting, diarrhea, or constipation. Bladder: No dysuria, gross hematuria, urinary frequency, urinary urgency, or incontinence. Breast: No breast lumps, nipple d/c, overlying skin changes, redness or skin retraction. 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 Allergies and current medication updated:Yes EXAM: BP 114/72 Wt 204 lb (92.5kg) LMP 05/23/2023 GENERAL: pleasant, female in no apparent distress HEENT: Normocephalic, atraumatic, mucus membranes moist, and no lesions NECK: Supple, full range of motion, no adenopathy, and thyroid normal DERMATOLOGY: Normal, without lesions, non-icteric, and non-hirsute BREAST: soft, non-tender, symmetric, no dominant mass, normal nipple-areolar complex, no lymphadenopathy, and no nipple discharge CHEST: Normal inspiratory effort ABDOMEN: soft, non-tender, and no masses PELVIC: external genitalia normal, normal Bartholin's glands, urethra, Lawton's glands, no vulvar lesions, no cervical lesions, good vaginal support, physiologic discharge present, normal appearing perineal body and perianal region, scant dark uterine bleeding BIMANUAL: uterus normal size, shape and consistency, no adnexal masses, and non-tender NEURO: alert and oriented x3,exam grossly non-focal EXTREMITIES: normal ASSESSMENT AND PLAN: No diagnosis found. 1.)AUB/irregular menses: Discussed that irregular menses are likely related to anovulation. Prescribed Progesterone with use, risks, and benefits all reviewed in detail. Labs including TSH and Prolactin also ordered. 2.)Pap smear done today. 3.) TSH/Prolactin lengthy conversation re annovualtion/irregular menses and causes ftfc>45m Trinidad Richards MD By signing my name below, I, Yeni Hancock, AA Student, attest that this documentation has been prepared under the direction and in the presence of Dr. Richards Electronically signed, KATHERINE Natarajan Student, Axel June 21, 2023 9:11 AM Referring Provider: SELF [200] Allergies As of Date: 06/21/2023 (No Known Allergies) Date Reviewed: 06/21/2023 Reviewed by: Lu Hutchinson LPN - Fully Assessed Reason for Visit: Menstrual Problem [67] Primary Visit Diagnosis:Encounter for screening for malignant neoplasm of cervix [Z12.4] Other Visit Diagnosis:Irregular menses [N92.6] Order(s):TSH BLD [SQTSH] Order #: [id number] FUTURE PROLACTIN BLD [SQPROL] Order #: [id number] FUTURE PAP TEST [LNQ9257] Order #: [id number]. #:[id number] norethindrone (AYG (more content not included)... [facility] PAP TESTon 06-21-2023 ADEQUACY Normal [facility] Comment on above: Order Comment: Speci men Type: FLUID SPECIMEN Ordering Facility: [facility] Address: [address] [place] [address] Result Comment: Sati sfactory for interpretation Excess blood Performed By: #### L [id number] #### [facility] CLIA [id number] [address] [place] [address] [place] CASE REPORT [facility] Comment on above: Order Comment: Speci men Type: FLUID SPECIMEN Ordering Facility: [facility] Address: [address] [place] [address] Result Comment: Gyne cologic Cytology Report Case: [id number] Authorizing Provider: Trinidad Richards MD Collected: 06/21/2023 10:12 AM Ordering Location: OB/Gynecology Received: 06/21/2023 12:00 PM First Screen: TazunYesy crandall, CT, ASCP Rescreen: Olive Wayne, EDGAR, ASCP Specimen: Pap Test, ThinPrep, Cervix Performed By: #### L [id number] #### [facility] CLIA [id number] [address] [place] [address] [place] CLINICAL HISTORY, CYTOLOGY, MOUNTAIN [place]KE GUIDE Abnormal Bleeding (Describe) [facility] Comment on above: Order Comment: Speci men Type: FLUID SPECIMEN Ordering Facility: [facility] Address: [address] [place] [address] Performed By: #### L [id number] #### [facility] CLIA [id number] [address] [place] [address] [place] CYTOLOGY PAP OTHER INT Predominance of coccobacilli consistent with shift in vaginal judy [facility] Comment on above: Order Comment: Speci men Type: FLUID SPECIMEN Ordering Facility: [facility] Address: [address] [place] [address] Performed By: #### L [id number] #### [facility] CLIA [id number] [address] [place] [address] [place] FINAL PERFORMING LAB Normal [facility] Comment on above: Order Comment: Speci men Type: FLUID SPECIMEN Ordering Facility: [facility] Address: [address] [place] [address] Result Comment: Tech nical component, grant officer screening performed at [facility], [address] [place] [address] [place] [address] CLIA# [id number] Diagnostic interpretation performed at [facility], [address] [place] [address] [place] [address] CLIA# [id number] Claims Counsel: Kelby Falcon M.D. Performed By: #### L [id number] #### [facility] CLIA [id number] [address] [place] [address] [place] GROSS DESCRIPTION A. Cervix Normal [facility] Comment on above: Order Comment: Speci men Type: FLUID SPECIMEN Ordering Facility: [facility] Address: [address] [place] [address] Result Comment: Glac ial Acetic Acid added. Performed By: #### L [id number] #### [facility] CLIA [id number] [address] [place] [address] [place] HPV REFLEX HPV if Atypical [facility] Comment on above: Order Comment: Speci men Type: FLUID SPECIMEN Ordering Facility: [facility] Address: [address] [place] [address] Performed By: #### L [id number] #### [facility] CLIA [id number] [address] [place], [place] [id number] [place] INTERPRETATION, CYTOLOGY, MOUNTAIN [place]KE GUIDE [facility] Comment on above: Order Comment: Speci men Type: FLUID SPECIMEN Ordering Facility: [facility] Address: [address] [place] [address] Result Comment: Nega tive for intraepithelial lesion or malignancy. Performed By: #### L [id number] #### [facility] CLIA [id number] [address] [place] [address] [place] LMP 05/23/2023 [facility] Comment on above: Order Comment: Speci men Type: FLUID SPECIMEN Ordering Facility: [facility] Address: [address] [place] [address] Performed By: #### L [id number] #### [facility] CLIA [id number] [address] [place] [address] [place] PAP DISCLAIMER COMMENT The Pap Smear is a screening test for cervical cancer. False negative results occur with all screening tests, emphasizing the need for rescreening at recommended intervals, and clinical correlation. [facility] Comment on above: Order Comment: Speci men Type: FLUID SPECIMEN Ordering Facility: [facility] Address: [address] [place], [place] [address] Performed By: #### L [id number] #### [facility] CLIA [id number] [address] [place], [place] [address] [place] PAP SUPERVISOR COMPOSING ROOM COMMENT This specimen has be en analyzed by the ThinPrep Imaging System, an automated imaging and review system, which assists the laboratory in evaluating cells on ThinPrep Pap tests. Following automated imaging, selected zhu from every slide are reviewed by a grant officer. [facility] Comment on above: Order Comment: Speci men Type: FLUID SPECIMEN Ordering Facility: [facility] Address: [address] [place] [address] Performed By: #### L [id number] #### [facility] CLIA [id number] [address] [place] [address] [place] Absolute lymphocyte countOrd ered By: Olive Schreiber on 06-19-2023 Lymphocytes Auto (Unsp spec) [#/Vol] 2.44 10*3/uL 0.83-4.51 [facility] Automated lymphocyte count a s percentage of total leukocytesOrdered By: Olive Schreiber on 06-19-2023 Lymphocytes/100 WBC Auto (Unsp spec) 27.2 % 19-41 [facility] Basic Metabolic Profile (BMP )on 06-19-2023 BUN/CRE 17.1 RATIO Normal 10-20 [facility] Comment on above: Performed By: #### L 700.6800, L500.2500, L100.0100 #### [facility] [address] [place], [address] CA,Total 9.3 mg/dL Normal 8.5-10.1 [facility] Comment on above: Performed By: #### L 700.6800, L500.2500, L100.0100 #### [facility] [address] [place], [address] Chloride [Moles/Vol] 109 mmol/L High 98-[address] [facility] Comment on above: Performed By: #### L 700.6800, L500.2500, L100.0100 #### [facility] [address] [place], [address] CO2 [Moles/Vol] 27.0 mmol/L Normal 21.0-32.0 [facility] Comment on above: Performed By: #### L 700.6800, L500.2500, L100.0100 #### [facility] [address] [place], [address] Creatinine [Mass/Vol] 0.70 mg/dL Normal 0.55-1.02 [facility] Comment on above: Result Comment: The validity of the calculated GFR GFRAA in patients over 70 years has not been determined. Clinical correlation is essential. Performed By: #### L 700.6800, L500.2500, L100.0100 #### [facility] [address] [place], [address] ECRCL 132.57 ml/min [facility] Comment on above: Performed By: #### L 700.6800, L500.2500, L100.0100 #### [facility] [address] [place], [address] EST GFR - AA 130 mL/min Normal >60 [facility] Comment on above: Result Comment: Afri can [place] GFR Calc Performed By: #### L 700.6800, L500.2500, L100.0100 #### [facility] [address] [place], [address] GAP 3 Low 5-15 [facility] Comment on above: Performed By: #### L 700.6800, L500.2500, L100.0100 #### [facility] [address] [place], [address] GFR/1.73 sq M.predicted among non-blacks MDRD (S/P/Bld) [Vol rate/Area] 107 mL/min/{1.73_m2} Normal >60 [facility] Comment on above: Result Comment: Non- GFR Calc Performed By: #### L 700.6800, L500.2500, L100.0100 #### [facility] [address] [place], [address] Glucose [Mass/Vol] 88 mg/dL Normal 74-106 [facility] Comment on above: Performed By: #### L 700.6800, L500.2500, L100.0100 #### [facility] [address] [place], [address] Potassium [Moles/Vol] 4.6 mmol/L Normal 3.5-5.1 [facility] Comment on above: Performed By: #### L 700.6800, L500.2500, L100.0100 #### [facility] [address] [place], [address] Sodium [Moles/Vol] 139 mmol/L Normal 136-145 [facility] Comment on above: Performed By: #### L 700.6800, L500.2500, L100.0100 #### [facility] [address] [place], [address] Urea nitrogen [Mass/Vol] 12 mg/dL Normal 7-18 [facility] Comment on above: Performed By: #### L 700.6800, L500.2500, L100.0100 #### [facility] [address] [place], [address] Basophil percentageOrdered B y: Olive Schreiber on 06-19-2023 Basophils/100 WBC (Bld) 0.8 % 0-1 [facility] Chloride [Moles/Vol] 109 mmol/L 98-[address] [facility] Eosinophils/100 WBC (Bld) 1.0 % 0-5 [facility] Glucose [Mass/Vol] 88 mg/dL 74-106 [facility] Hemoglobin (Bld) [Mass/Vol] 13.7 g/dL 12.0-15.0 [facility] Monocytes/100 WBC (Bld) 6.7 % 0-10 [facility] Neutrophils (Bld) [#/Vol] 5.7 10*3/uL 2.0-7.7 [facility] Neutrophils/100 WBC (Bld) 64.1 % 47-70 [facility] Potassium [Moles/Vol] 4.6 mmol/L 3.5-5.1 [facility] Sodium [Moles/Vol] 139 mmol/L 136-145 [facility] WBC (Bld) [#/Vol] 9.0 10*3/uL 4.4-11.0 [facility] CBC W/Diff, Automatedon 06-08 Absolute Lymph 2.44 X10 3/uL Normal 0.83-4.51 [facility] Comment on above: Performed By: #### L 700.6800, L500.2500, L100.0100 #### [facility] [address] [place], [address] Absolute Neut 5.7 X10 3/uL Normal 2.0-7.7 [facility] Comment on above: Performed By: #### L 700.6800, L500.2500, L100.0100 #### [facility] [address] [place], [address] Basophils/100 WBC (Bld) 0.8 % Normal 0-1 [facility] Comment on above: Performed By: #### L 700.6800, L500.2500, L100.0100 #### [facility] [address] [place], [address] Eosinophils/100 WBC (Bld) 1.0 % Normal 0-5 [facility] Comment on above: Performed By: #### L 700.6800, L500.2500, L100.0100 #### [facility] [address] [place], [address] Erythrocyte distribution width (RBC) [Ratio] 13.3 % Normal 11.6-14.6 [facility] Comment on above: Performed By: #### L 700.6800, L500.2500, L100.0100 #### [facility] [address] [place], [address] Hematocrit (Bld) [Volume fraction] 42.9 % Normal 37-47 [facility] Comment on above: Performed By: #### L 700.6800, L500.2500, L100.0100 #### [facility] [address] [place], [address] Hemoglobin (Bld) [Mass/Vol] 13.7 g/dL Normal 12.0-15.0 [facility] Comment on above: Performed By: #### L 700.6800, L500.2500, L100.0100 #### [facility] [address] [facility] [place], [address] IG% 0.200 Normal 0.0-0.9 [facility] Comment on above: Result Comment: IG% - Immature Granulocytes (promyelocytes, myelocytes and metamyelocytes) > 1% indicates that a LEFT SHIFT is Present. Performed By: #### L 700.6800, L500.2500, L100.0100 #### [facility] [address] [place], [address] Lymphocytes/100 WBC (Bld) 27.2 % Normal 19-41 [facility] Comment on above: Performed By: #### L 700.6800, L500.2500, L100.0100 #### [facility] [address] [place], [address] MCH (RBC) [Entitic mass] 27.6 pg Normal 27.0-32.0 [facility] Comment on above: Performed By: #### L 700.6800, L500.2500, L100.0100 #### [facility] [address] [place], [address] MCHC (RBC) [Mass/Vol] 31.9 g/dL Low 32-36 [facility] Comment on above: Performed By: #### L 700.6800, L500.2500, L100.0100 #### [facility] [address] [place], [address] MCV (RBC) [Entitic vol] 86.5 fL Normal 81-99 [facility] Comment on above: Performed By: #### L 700.6800, L500.2500, L100.0100 #### [facility] [address] [place], [address] Monocytes/100 WBC (Bld) 6.7 % Normal 0-10 [facility] Comment on above: Performed By: #### L 700.6800, L500.2500, L100.0100 #### [facility] [address] [place], [address] Neutrophils/100 WBC (Bld) 64.1 % Normal 47-70 [facility] Comment on above: Performed By: #### L 700.6800, L500.2500, L100.0100 #### [facility] [address] [place], [address] Nucleated RBC (Bld) [#/Vol] 0 10*3/uL Normal 0-5 [facility] Comment on above: Performed By: #### L 700.6800, L500.2500, L100.0100 #### [facility] [address] [place], [address] Platelet mean volume (Bld) [Entitic vol] 9.5 fL Normal 6.2-12.0 [facility] Comment on above: Performed By: #### L 700.6800, L500.2500, L100.0100 #### [facility] [address] [place], [address] Platelets (Bld) [#/Vol] 282 10*3/uL Normal 150-450 [facility] Comment on above: Performed By: #### L 700.6800, L500.2500, L100.0100 #### [facility] [address] [place], [address] RBC (Bld) [#/Vol] 4.96 10*6/uL Normal 4.2-5.4 [facility] Comment on above: Performed By: #### L 700.6800, L500.2500, L100.0100 #### [facility] [address] [place], [address] RDW SD 41.4 fl Normal 35.1-43.9 [facility] Comment on above: Performed By: #### L 700.6800, L500.2500, L100.0100 #### [facility] [address] [place], [address] WBC (Bld) [#/Vol] 9.0 10*3/uL Normal 4.4-11.0 [facility] Comment on above: Performed By: #### L 700.6800, L500.2500, L100.0100 #### [facility] [address] [place], [address] Determination of erythrocyte mean corpuscular volume (MCV)Ordered By: Olive Schreiber on 06-19-2023 MCV (RBC) [Entitic vol] 86.5 fL 81-99 [facility] Emergency Department Summary on 06-19-2023 Emergency Department Summary [facility] Medical Records Department [address] [place] [address] Emergency Department Summary 06/19/23 MR#: [id number] Acct: [id number] Name: CEDRIC ESQUIVEL Rep #: [id number] : 1995 27 From: Olive Schreiber MD PCP: Dr. Rosio Reynolds MD Status:DEP ER Location: ED HPI HPI - Female History of Present Illness Chief Complaint: Vag Bleeding Informant: patient Narrative Narrative: Patient present secondary vaginal bleeding. She states her last menstrual cycle started on May 23 and she has been bleeding ever since. She describes heavy bleeding going through several pads and passing clots. She presents today because she feels fatigued and somewhat lightheaded. She is also complaining of increased cramping. Patient has followed with Rosio Waldron at the [facility] office. She states she sent them a message to get an appointment shortly after her symptoms started, over has not heard back. PFSH PFSH Medical History no medical history no medical history Home Medications NK 12/02/19 [History Last Taken Unknown] Allergy/AdvReac Type Severity Reaction Status Date / Time No Known Allergies Allergy Verified 06/19/23 13:44 Social History Smoking Status: Current some day smoker tobacco type: cigarettes ROS ROS ED Constitutional Constitutional ED: Denies chills or fever(s) Eyes Eyes: Denies change in vision or discharge from eye(s) ENT ENT ED: Denies discharge from eye(s), rhinorrhea or sore throat Cardiovascular Cardiovascular: Denies chest pain or palpitations Respiratory/Chest Respiratory/Chest: Denies cough or dyspnea Gastrointestinal Gastrointestinal: Reports abdominal pain; Denies diarrhea, nausea or vomiting Genitourinary Genitourinary ED: Denies dysuria Musculoskeletal Musculoskeletal: Denies back pain or extremity pain Integumentary Denies Abrasions or rash Neurologic Neurologic: Reports weakness; Denies headache(s) Psychiatric Psychiatric: Denies anxiety or depression Allergic/Immunologic Allergic/Immunologic ED: Denies lip swelling or urticaria EXAM Physical Exam Const Vital Signs: 06/19/23 13:41 06/19/23 14:32 06/19/23 16:00 Temperature 98 F Temperature Source Temporal Pulse Rate 109 H 94 83 Respiratory Rate 16 14 14 Blood Pressure 116/102 H 116/64 114/71 Blood Pressure Mean 106 81 85 Pulse Ox 98 98 99 Oxygen Delivery Method Room Air Room Air Room Air Positive well nourished and well developed General Appearance ED: well developed HEENT Reports normocephalic and head/scalp atraumatic Eyes PERRL and EOMs intact bilaterally Neck supple Chest Wall inspection of chest normal and palpation of chest normal Resp normal respiratory effort and clear to auscultation bilaterally Cardio regular rate and regular rhythm GI GI Narrative: Abdomen soft with mild tenderness in the lower abdomen. No guarding or rebound. Active bowel sounds are noted. Palpation: soft Back/Spine no CVA tenderness Extremity normal to inspection Neuro oriented x3 and no sensory deficits noted Sensorium / Orientation: alert Motor Exam: strength 5/5 throughout Psych mental status grossly normal Skin no rashes or lesions noted MDM MDM MDM Narrative Medical decision making narrative: Patient given a liter of IV fluids. Labwork obtained to evaluate for leukocytosis, anemia, and electrolyte derangement. Pelvic ultrasound obtained to evaluate for endometrial thickness or mass. Lab Data Labs: Laboratory Results - last 24 hr 06/19/23 15:11 WBC 9.0 RBC 4.96 Hgb 13.7 Hct 42.9 MCV 86.5 MCH 27.6 MCHC 31.9 L RDW Std Deviation 41.4 RDW Coeff of Elizabeth 13.3 Plt Count 282 MPV 9.5 Immature Gran % (Auto) 0.200 Neut % (Auto) 64.1 Lymph % (Auto) 27.2 [place] % (Auto) 6.7 Eos % (Auto) 1.0 Baso % (Auto) 0.8 Absolute Neuts (auto) 5.7 Absolute Lymphs (auto) 2.44 Nucleated RBC % 0 Sodium 139 Potassium 4.6 Chloride 109 H Carbon Dioxide 27.0 Anion Gap 3 L BUN 12 Creatinine 0.70 Estim Creat Clear Calc 132.57 Est GFR (MDRD) Af Amer 130 Est GFR (MDRD) Non-Af 107 BUN/Creatinine Ratio 17.1 Glucose 88 Calcium 9.3 Serum , Qual NEGATIVE Radiography Diagnostic Testing: Clinical Impression(s) from Imaging Studies Transvaginal US 06/19/23 16:00 IMPRESSION: Heterogeneous thickened and irregular endometrial echoes in the right lower uterine segment. This requires direct visualization and sampling should be considered. Electronically Signed: Harry Leonard MD at 18:08 EDT Reading Location ID and State: 1775 / [place] , Service support [phone] (more content not included)... [facility] Erythrocyte distribution wid th ratioOrdered By: Olive Schreiber on 06-19-2023 Erythrocyte distribution width (RBC) [Ratio] 13.3 % 11.6-14.6 [facility] Erythrocyte distribution wid th standard deviationOrdered By: Olive Schreiber on 06-19-2023 Erythrocyte distribution width (RBC) [Entitic vol] 41.4 fL 35.1-43.9 [facility] Hematocrit Auto (Bld) [Volum e fraction]Ordered By: Olive Schreiber on 06-19-2023 Hematocrit (Bld) [Volume fraction] 42.9 % 37-47 [facility] Immature granulocytes/100 WB C Auto (Bld)Ordered By: Olive Schreiber on 06-19-2023 Immature granulocytes/100 WBC (Bld) 0.200 % 0.0-0.9 [facility] Comment on above: IG% - Immature Granu locytes (promyelocytes, myelocytes and metamyelocytes) > 1% indicates that a LEFT SHIFT is Present. Laboratory - Chemistry and C hemistry - challengeOrdered By: Olive Schreiber on 06-19-2023 CO2 [Moles/Vol] 27.0 mmol/L 21.0-32.0 [facility] Urea nitrogen/Creatinine [Mass ratio] 17.1 mg/mg 10-20 [facility] - Hematology and Cell countsOrdered By: Olive Schreiber on 06-19-2023 MCH (RBC) [Entitic mass] 27.6 pg 27.0-32.0 [facility] MCHC (RBC) [Mass/Vol] 31.9 g/dL 32-36 [facility] Nucleated RBC/100 WBC (Bld) [Ratio] 0 % 0-5 [facility] Platelet mean volume (Bld) [Entitic vol] 9.5 fL 6.2-12.0 [facility] Platelets (Bld) [#/Vol] 282 10*3/uL 150-450 [facility] No Panel InformationOrdered By: Olive Schreiber on 06-19-2023 Estimated Creatinine Clearance Calc 132.57 ml/min [facility] Estimated GFR (MDRD) Amer 130 mL/min >60 [facility] Comment on above: GFR Calc Estimated GFR (MDRD) Non-Af Amer 107 mL/min >60 [facility] Comment on above: Non- GFR Calc ,Serum,hCG Quali.on 06-19-2023 HCG, SERUM QUAL Negative [facility] Comment on above: Performed By: #### L 700.6800, L500.2500, L100.0100 #### [facility] [address] [place], [address] RBC Auto (Bld) [#/Vol]Ordere d By: Olive Schreiber on 06-19-2023 RBC (Bld) [#/Vol] 4.96 10*6/uL 4.2-5.4 [facility] Serum or plasma calcium óscar urement (mass/volume)Ordered By: Olive Schreiber on 06-19-2023 Calcium [Mass/Vol] 9.3 mg/dL 8.5-10.1 [facility] Serum or plasma choriogonado tropin detectionOrdered By: Olive Schreiber on 06-19-2023 HCG ( test) Ql Negative [facility] Serum or plasma creatinine m easurement (mass/volume)Ordered By: Olive Schreiber on 06-19-2023 Creatinine [Mass/Vol] 0.70 mg/dL 0.55-1.02 [facility] Comment on above: The validity of the calculated GFR & GFRAA in patients over 70 years has not been determined. Clinical correlation is essential. Serum or plasma urea nitroge n measurement (mass/volume)Ordered By: Olive Schreiber on 06-19-2023 Urea nitrogen [Mass/Vol] 12 mg/dL 7-18 [facility] Thin prep Papanicolaou smear with manual screeningOrdered By: Olive Schreiber on 06-19-2023 Thin prep Papanicolaou smear with manual screening 3 5-15 [facility] Transvaginal Non-on 06-19-2023 Transvaginal Non- [facility] Imaging Services [address] [place] [address] Transvaginal Non- MR#: [id number] Acct: [id number] Name: CEDRIC ESQUIEVL Rep #: [id number] : 1995 F 27 From: Harry silva MD PCP: Dr. Rosio Reynolds MD Status: [facility] Study: Transvaginal Non- Date of Exam: Exam# [id number] Ordering Dr: Olive Schreiber MD [id number] STUDY: ULTRASOUND TRANSVAGINAL CLINICAL: Female, 27 years old. menorrhagia TECHNIQUE: Transvaginal COMPARISON: None. FINDINGS: Normal uterine size measuring 8.2 x 4.6 x 3.8 cm in maximal craniocaudal dimension. There are no myometrial masses. Endometrial echoes in the lower uterine segment measure as much as 17 mm and are heterogeneous and irregular possibly with small cystic structures. This could be thrombus/hematoma. Primary endometrial process is not excluded and direct visualization/sampling is recommended. Normal right ovary, measuring 2.7 x 1.9 x 1.3 cm. There are multiple follicles without a dominant cyst. Normal blood flow. Normal left ovary, measuring 2.4 x 2.0 x 1.8 cm. There are multiple follicles without a dominant cyst. Normal blood flow. There is mild free fluid in the pelvis. Polycystic ovary disease: No. US/Transvaginal Non- IMPRESSION: Heterogeneous thickened and irregular endometrial echoes in the right lower uterine segment. This requires direct visualization and sampling should be considered. Electronically Signed: Harry Leonard MD at 18:08 EDT , CC: Dr. Rosio Reynolds MD; Dr. Olive Schreiber MD Embroidery Designer: Signed [facility] Vital Signs Date Time Vital Sign Value Performing Clinician Facility 05-29-2024 08:23-0500 Body temperature 98.29 [degF] Malia Lord [employer]OV[employer] SUPERVISOR - [employer] ASSISTANT Work Phone: [facility] 05-29-2024 08:23-0500 Body weight 99.79 kg Malia Lord [employer] REMOVAL SUPERVISOR - [employer]LE[employer]OR[employer] ASSISTANT Work Phone: [facility] 05-29-2024 08:23-0500 Diastolic blood pressure 80 mm[Hg] Malia Risa [employer] REMOVAL SUPERVISOR - [employer]LE[employer] SPORTS ASSISTANT Work Phone: [facility] 05-29-2024 08:23-0500 Heart rate 98 /min Malia Leungjuany [employer] REMOVAL SUPERVISOR - [employer]LE[employer] SPORTS ASSISTANT Work Phone: [facility] 05-29-2024 08:23-0500 Systolic blood pressure 123 mm[Hg] aMlia Leungjuany SNOW REMOVAL SUPERVISOR - COLLEGE SPORTS ASSISTANT Work Phone: [facility] 07-10-2023 09:14-0400 Body weight 92.63 kg Trinidad Richards MD Work Phone: [facility] 07-10-2023 09:14-0400 Diastolic blood pressure 60 mm[Hg] Trinidad Richards MD Work Phone: [facility] 07-10-2023 09:14-0400 Systolic blood pressure 90 mm[Hg] Trinidad Richards MD Work Phone: [facility] 06-21-2023 08:40-0400 Body weight 92.53 kg Trinidad Richards MD Work Phone: [facility] 06-21-2023 08:40-0400 Diastolic blood pressure 72 mm[Hg] Trinidad Richards MD Work Phone: [facility] 06-21-2023 08:40-0400 Systolic blood pressure 114 mm[Hg] Trinidad Richards MD Work Phone: [facility] 06-19-2023 18:49-0400 Body temperature 97.5 [degF] [facility] 06-19-2023 18:49-0400 Diastolic blood pressure 66 mm[Hg] [facility] 06-19-2023 18:49-0400 Heart rate 76 /min [facility] 06-19-2023 18:49-0400 Respiratory rate 15 /min [facility] 06-19-2023 18:49-0400 SaO2% (BldA) [Mass fraction] 99 % [facility] 06-19-2023 18:49-0400 Systolic blood pressure 127 mm[Hg] [facility] 06-19-2023 13:41-0400 Body height 160.02 cm [facility] 06-19-2023 13:41-0400 Body mass index (BMI) [Ratio] 36 kg/m2 [facility] 06-19-2023 13:41-0400 Body weight 92.27 kg [facility] Encounters Encounter Date Encounter Type Care Provider Facility Start: 05-31-2024 End: 05-31-2024 Orders Only Malia Lord SN[employer] REMOVAL SUPERVISOR [employer] Work Phone: [facility] Comment on above: Chlamydial infection (Primary Dx) Start: 05-29-2024 End: 05-29-2024 Office outpatient new 30 minutes Malia Lord [employer] Work Phone: [facility] Comment on above: Missed menses (Prima ry Dx); test positive; Vaginal discharge; Cervical cancer screening Start: 05-29-2024 End: 05-29-2024 Orders Only Malia Lord [employer] REMOVAL SUPERVISOR [employer] Work Phone: [facility] Comment on above: Bacterial vaginosis (Primary Dx); Vaginal yeast infection; Chlamydia infection Start: 07-12-2023 Telephone encounter Trinidad Richards MD Work Phone: OB/Gynecology Start: 07-10-2023 End: 07-11-2023 ambulatory TRINIDAD RICHARDS Facility:[facility] Start: 07-10-2023 End: 07-10-2023 ambulatory TRINIDAD RICHARDS Facility:[facility] Start: 07-10-2023 End: 07-10-2023 Patient encounter procedure Trinidad Richards MD Work Phone: OB/Gynecology Comment on above: Irregular menses (Pr imary Dx) Start: 06-21-2023 End: 06-21-2023 ambulatory TRINIDAD RICHARDS Facility:[facility] Start: 06-21-2023 End: 06-21-2023 Patient encounter procedure Trinidad Richards MD Work Phone: OB/Gynecology Comment on above: Encounter for screen ing for malignant neoplasm of cervix (Primary Dx); Irregular menses Start: 06-19-2023 End: 06-19-2023 Emergency department patient visit Rosio Reynolds [facility] Start: 06-19-2023 End: 06-19-2023 Emergency department [facility] Work Phone: Procedures Date Procedure Procedure Detail Performing Clinician Start: 05-29-2024 Bacterial vaginosis and vaginitis rRNA panel - Vaginal fluid by Probe Malia Lord [employer] REMOVAL SUPERVISOR - [employer] Work Phone: Start: 05-29-2024 Iadna chlamydia trachomatis amplified probe tq Malia Lord [employer] REMOVAL SUPERVISOR - [employer] Work Phone: Start: 05-29-2024 Blood typing serologic abo Malia Lord [employer]OV[employer] SUPERVISOR - [employer]OR[employer] ASSISTANT Work Phone: Start: 05-29-2024 Gonadotropin chorion ic quantitative Malia Lord [employer] REMOVAL SUPERVISOR - [employer] Work Phone: Start: 06-19-2023 Transvaginal echography Plan of Treatment Date Care Activity Detail Author Start: 2072 RSV Immunization for Adults (1 - 1-dose 75+ series) RSV Immunization for Adults (1 - 1-dose 75+ series) [facility] Start: 07-10-2047 Zoster Vaccines (1 o f 2) Zoster Vaccines (1 of 2) [facility] Start: 06-20-2026 Screening for malign ant neoplasm of cervix Pap Testing [facility] Start: 06-18-2024 End: 06-18-2024 ambulatory 06/18/2024 9:00 AM EDT Initial [facility] [address] [place] [phone] [facility] Start: 06-03-2024 End: 06-03-2024 Clinical Support 06/03/2024 8:30 AM EST Clinical Support [facility] [address] [place] [phone] [facility] Start: 05-31-2024 Subsequent hospital visit by physician 05/31/2024 8:30 AM EST Hospital Encounter [facility] [address] [place] [address] Malia Lord, [employer] REMOVAL SUPERVISOR - [employer]LE[employer] ASSISTANT [address] [place] [address] [facility] Start: 05-29-2024 End: 05-29-2025 US for US OB less than 14 weeks early Imaging Routine Missed menses test positive Expected: 05/29/2024 (Approximate), Expires: 05/29/2025 [facility] Work Phone: Comment on above: Expected: 05/29/2024 (Approximate), Expires: 05/29/2025 Start: 12-10-2023 COVID-19 Vaccine () COVID-19 Vaccine () [facility] Start: 12-10-2023 Influenza vaccination [facility] Start: 06-21-2023 End: 09-20-2023 Prolactin [Mass/volume] in Serum or Plasma PROLACTIN BLD Lab Routine Irregular menses Expected: 06/21/2023, Expires: 09/20/2023 [facility] Work Phone: Comment on above: Expected: 06/21/2023 , Expires: 09/20/2023 Start: 06-21-2023 End: 09-20-2023 Thyrotropin [Units/volume] in Serum or Plasma TSH BLD Lab Routine Irregular menses Expected: 06/21/2023, Expires: 09/20/2023 [facility] Work Phone: Comment on above: Expected: 06/21/2023 , Expires: 09/20/2023 Start: 04-10-2023 Depression Assessment Depression Ass essment [facility] Start: 12-09-2022 Covid-19 Vaccine () Covid-19 Vaccine () [facility] Start: 12-09-2022 Influenza vaccination Influenza Vacc ine (#1) [facility] Start: 12-09-2018 HPV Vaccine (3 - 3-d ose series) HPV Vaccine (3 - 3-dose series) [facility] Start: 12-04-2018 HPV Vaccines (3 - 3-dose series) HPV Vaccines (3 - 3-dose series) [facility] Start: 2018 Screening for malign ant neoplasm of cervix [facility] Start: 2016 DTaP/Tdap/Td Vaccine s (1 - Tdap) DTaP/Tdap/Td Vaccines (1 - Tdap) [facility] Start: 2016 Hepatitis B Vaccine (1 of 3 - 19+ 3-dose series) Hepatitis B Vaccine (1 of 3 - 19+ 3-dose series) [facility] Start: 2016 Hepatitis B Vaccines (1 of 3 - 19+ 3-dose series) Hepatitis B Vaccines (1 of 3 - 19+ 3-dose series) [facility] Start: 2016 Urine microalbumin profile DTaP,Tdap,Td Vaccine (1 - Tdap) [facility] Start: 07-10-2015 Hepatitis C screening Hepatitis C Sc reening [facility] Start: 07-10-2015 HIV screening HIV Screening [facility] Start: 07-10-2011 Peds To Adult Transition Annual Assessment Peds To Adult Transition Annual Assessment [facility] Start: 2010 Varicella vaccination Varicell a Vaccines (1 of 2 - 13+ 2-dose series) [facility] Start: 2009 Depression Screening Depression Scre ening [facility] Start: 2009 Peds To Adult Transition Initial Discussion Peds To Adult Transition Initial Discussion [facility] Start: 1998 MMR Vaccines (1 of 1 - Standard series) MMR Vaccines (1 of 1 - Standard series) [facility] Start: 1997 HIV screening HIV Screening [facility] Cytology Cervical or vaginal smear or scraping study Pap Smear Pathology and Cytology Routine Cervical cancer screening Ordered: 05/29/2024 [facility] Comment on above: Ordered: 05/29/2024 PAP TEST PAP TEST Lab Olga [facility] Encounter for screening for malignant neoplasm of cervix 06/21/2023 10:12 AM EDT [facility] Work Phone: Patient Education ED Dysfunction al Uterine Bleeding [facility] Work Phone: Patient referral [facility] Work Phone: [facility] c Immunizations Immunization Date Immunization Notes Care Provider Fa michoacano 08-08-2018 Human Papillomavirus 9-valent vaccine Trinidad Richards MD Work Phone: [facility] 08-08-2018 HPV, unspecified formulation Malia Lord [employer] REMOVAL SUPERVISOR - [employer]LE[employer] ASSISTANT Work Phone: [facility] 06-06-2018 Human Papillomavirus 9-valent vaccine Trinidad Richards MD Work Phone: [facility] Payers Date Payer Category Payer Commercial Managed C are - O [employer] [id number] 2024 Unknown [id number] 2024 Medicaid [place]ICA[place] - [place] [id number] 2023 Self-pay [id number] 2017 Unknown [id number] 2017 Unknown [employer] PPO OOS [id number] 2017-Present [phone] [address] [place] [address] PPO [id number] Unknown [id number] Social History Date Type Detail Facility Start: 06-19-2023 Tobacco smoking stat us MNIS Unknown if ever smoked [facility] Start: 12-02-2019 [facility] Start: 1997 Sex Assigned At Female [facility] Start: 06-21-2023 End: 05-29-2024 Tobacco smoking status MNIS Never smoked tobacco [facility] Start: 06-21-2023 End: 05-29-2024 Tobacco use and exposure Smokeless tobacco non-user [facility] Start: 06-21-2023 End: 07-10-2023 Alcohol intake Current non-drinker of alcohol (finding) [facility] Start: 06-21-2023 End: 05-28-2024 History of Social function [facility] Start: 06-21-2023 End: 05-28-2024 Tobacco use panel [facility] National Score (1-100), lower number is lower risk Not on file [facility] Start: 1997 Sex Assigned At Not on file [facility] Start: 07-10-2023 Tobacco Comment Pt vapes [facility] Start: 05-29-2024 Alcoholic beverage intake Ex-drinker (finding) [facility] Has the [employer] threatened to shut off services in your home in past 12Mo No [facility] Are you now , , , , never or living with a partner? [facility] How often to you hav e a drink containing alcohol? Monthly or less [facility] How many standard drinks containing alcohol do you have on a typical day? 1 or 2 [facility] How often do you hav e 6 or more drinks on 1 occasion? Never [facility] How hard is it for y ou to pay for the very basics like food, housing, medical care, and heating Not very hard [facility] Do you feel stress - tense, restless, nervous, or anxious, or unable to sleep at night because your mind is troubled all the time - these days [OSQ] To some extent [facility] (I/We) worried wheth er (my/our) food would run out before (I/we) got money to buy more. Never true [facility] Start: 05-09-2024 Sex Female (finding) [facility] Start: 05-10-2024 Gender identity Identifies as female gender (finding) [facility] Start: 05-10-2024 Sexual orientation Heterosexual (fin ding) [facility] NEGATED: Highlighted row [facility] Clinical Notes 06-21-2023 to 05-31-2024 TY Pinon CNP - 05/31/2024 6:12 PM Ely Singh MA - 05/29/2024 8:30 AM TY Clinton CNP - 05/29/2024 8:30 AM EST Note Date & Type Note Facility 05-31-2024 History of Presen t illness Narrative EPT sent for partner. documented in this encounter [facility] 05-29-2024 History of Presen t illness Narrative Pt states not currently taking any medications. A deli manager was offered to be present during her exam. The patient: declined Pt blood drawn on left arm pt tolerated well. [place] form send to lab. See media Chief Complaint Patient presents with Amenorrhea LMP 03-24-2024 , positive test at home on 05-12-2024 , had some vaginal bleeding starting on 05-14-2024 lasted 4 days , toke another four test after the bleeding was done still was positive test Patient's last menstrual period was 03/24/2024. Allergies: No Known Allergies Medications: No current outpatient medications on file prior to visit. No current facility-administered medications on file prior to visit. HPI: HPI Here for M[employer] exam to confirm . Denies bleeding or pain now but did have 4 days of bleeding earlier this month C/O vaginal discharge LMP 03-24-25 [facility] 12-29-24 9w 3d today ROS: Review of Systems Constitutional: Negative. HENT: Negative. Respiratory: Negative. Genitourinary: Positive for vaginal bleeding and vaginal discharge. Neurological: Negative. Physical exam: BP 123/80 Pulse 98 Temp 36.8 C (98.3 F) (Temporal) Wt 220 lb (99.8 kg) LMP 03/24/2024 Physical Exam Genitourinary: General: Normal vulva. Exam position: Lithotomy position. Vagina: Normal. Cervix: Normal. Uterus: Normal. Adnexa: Right adnexa normal and left adnexa normal. Assessment and Plan: Fanta was seen today for amenorrhea. Diagnoses and all orders for this visit: Missed menses (Primary) - hCG, quantitative - ABO/Rh - US OB less than 14 weeks early; Future - multivitamin () 27-0.8 MG tablet; Take 1 tablet by mouth daily. - pyridoxine (Vitamin B-6) 25 MG tablet; Take 1 tablet (25 mg) by mouth every 8 hours. - doxylamine (Unisom) 25 MG tablet; Take 1 tablet (25 mg) by mouth Nightly as needed for nausea. test positive - hCG, quantitative - ABO/Rh - US OB less than 14 weeks early; Future - multivitamin () 27-0.8 MG tablet; Take 1 tablet by mouth daily. - pyridoxine (Vitamin B-6) 25 MG tablet; Take 1 tablet (25 mg) by mouth every 8 hours. - doxylamine (Unisom) 25 MG tablet; Take 1 tablet (25 mg) by mouth Nightly as needed for nausea. Vaginal discharge - Chlamydia/Gonorrhea - Vaginitis Panel MVP PCR Cervical cancer screening - Pap Smear US dates next available then OB intake then new OB Follow up if symptoms worsen or fail to improve. documented in this encounter [facility] 07-12-2023 Miscellaneous Notes Formattin g of this note might be different from the original. Patient called back. Notified. Olive Lock, RN I was unable to reach Cedric directly. Please let patient know that her TSH and prolactin levels are normal. Trinidad Richards MD documented in this encounter [facility] 07-10-2023 Note HNO ID: [id number] Author: TRINIDAD RICHARDS MD Service: ? Author Type: Physician Type: Progress Notes Filed: 07/10/2023 09:48 Note Text: Slinger Sequins offered: Patient declines. Cedric Esquivel is a 28 year old female who presents for follow up subsequent to a 10 day course of progestin that arrested menses and then heavier than average flow flow for 4 days and now stopped entirely. . HPI: irregular cycles, TSH and prolactin pending OB History T0 L0 SAB0 IAB0 Ectopic0 Multiple0 Live Births0 [employer] History LMP: 05/23/2023, Having periods Age at Menarche: Age at First : Age at Menopause: [employer] History Comments: Sexual Activity: Yes; Male Contraception: Condom PAST MEDICAL HISTORY Diagnosis Date Chlamydia 02/08/2019 PAST SURGICAL HISTORY Procedure Laterality Date EAR SURGERY HX FAMILY HISTORY Problem Relation Age of Onset other (Irregular periods) Mother Had a hysterectomy at 30. No Known Problems Paternal Grandfather other (PCOS) Paternal Aunt other (pcos) Maternal Aunt Social History Tobacco Use Smoking status: Never Smokeless tobacco: Never Tobacco comments: Pt vapes Vaping Use Vaping Use: current everyday user Substances: Nicotine Substance Use Topics Alcohol use: No Current Outpatient Medications Medication Sig norethindrone (AYGESTIN) 5 mg tablet Take 1 tablet by mouth once daily for 10 days. Norethindrone-Eth Estradiol (ORTHO-NOVUM , ,) 1-35 mg-mcg per tablet Take 1 tablet by mouth once daily. (Patient not taking: Reported on 06/21/2023) No current facility-administered medications for this visit. Allergies As of Date: 07/10/2023 (No Known Allergies) Fully Assessed 07/10/2023 REVIEW OF SYSTEMS Abdomen: No bloating, early satiety, indigestion, or increased flatulence. No abdominal pain, nausea, vomiting, diarrhea, or constipation. Bladder: No dysuria, gross hematuria, urinary frequency, urinary urgency, or incontinence. Breast: No breast lumps, nipple d/c, overlying skin changes, redness or skin retraction. 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: N/A Allergies and current medication updated:Yes EXAM: Wt 204 lb 3.2 oz (92.6kg) LMP 05/23/2023 ASSESSMENT AND PLAN: Successful arrest of menses with aygestin TSH and prolactin RTO prn and annual ftfc.20m Trinidad Richards MD [facility] 07-10-2023 History of Presen t illness Narrative [employer] offered: Patient declines. Cedric Esquivel is a 28 year old female who presents for follow up subsequent to a 10 day course of progestin that arrested menses and then heavier than average flow flow for 4 days and now stopped entirely. . HPI: irregular cycles, TSH and prolactin pending OB History T0 L0 SAB0 IAB0 Ectopic0 Multiple0 Live Births0 [employer] History LMP: 05/23/2023, Having periods Age at Menarche: Age at First : Age at Menopause: [employer] Table [employer] History Comments: Sexual Activity: Yes; Male Contraception: Condom PAST MEDICAL HISTORY Diagnosis Date Chlamydia 02/08/2019 PAST SURGICAL HISTORY Procedure Laterality Date EAR SURGERY HX FAMILY HISTORY Problem Relation Age of Onset other (Irregular periods) Mother Had a hysterectomy at 30. No Known Problems Paternal Grandfather other (PCOS) Paternal Aunt other (pcos) Maternal Aunt Social History Tobacco Use Smoking status: Never Smokeless tobacco: Never Tobacco comments: Pt vapes Vaping Use Vaping Use: current everyday user Substances: Nicotine Substance Use Topics Alcohol use: No Current Outpatient Medications Medication Sig norethindrone (AYGESTIN) 5 mg tablet Take 1 tablet by mouth once daily for 10 days. Norethindrone-Eth Estradiol (ORTHO-NOVUM , ,) 1-35 mg-mcg per tablet Take 1 tablet by mouth once daily. (Patient not taking: Reported on 06/21/2023) No current facility-administered medications for this visit. Allergies As of Date: 07/10/2023 (No Known Allergies) Fully Assessed 07/10/2023 REVIEW OF SYSTEMS Abdomen: No bloating, early satiety, indigestion, or increased flatulence. No abdominal pain, nausea, vomiting, diarrhea, or constipation. Bladder: No dysuria, gross hematuria, urinary frequency, urinary urgency, or incontinence. Breast: No breast lumps, nipple d/c, overlying skin changes, redness or skin retraction. 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: N/A Allergies and current medication updated:Yes EXAM: Wt 204 lb 3.2 oz (92.6kg) LMP 05/23/2023 ASSESSMENT AND PLAN: Successful arrest of menses with aygestin TSH and prolactin RTO prn and annual ftfc.20m Trinidad Richards MD documented in this encounter [facility] 06-21-2023 Note HNO ID: [id number] Author: TRINIDAD RICHARDS MD Service: ? Author Type: Physician Type: Progress Notes Filed: 06/21/2023 09:45 Note Text: Cedric Esquivel is a 27 year old female who presents for problem visit of AUB for 1 month. LMP was 05-23-23 with bleeding daily since, with max flow 18 tasmpons/24 hrs. Slowed now. Occ passage of clots and occ bruising . HPI: Comes in today and notes still bleeding since 05/23/23. Bleeding varies in heaviness and has been light all this week. Menarche at age 15. Notes history of irregular menses for which she took OCP in past. Also notes history of trichomonas in 2017. Bisexual. Regular/daily intercourse since November and w/o contraception. 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 No Known Problems Paternal Grandfather other (PCOS) Paternal Aunt other (pcos) Maternal Aunt Social History Tobacco Use Smoking status: Never Smokeless tobacco: Never Vaping Use Vaping Use: current everyday user Substance Use Topics Alcohol use: No Current Outpatient Medications Medication Sig Norethindrone-Eth Estradiol (ORTHO-NOVUM , ,) 1-35 mg-mcg per tablet Take 1 tablet by mouth once daily. (Patient not taking: Reported on 06/21/2023) No current facility-administered medications for this visit. Allergies As of Date: 06/21/2023 (No Known Allergies) Fully Assessed 06/21/2023 REVIEW OF SYSTEMS Abdomen: No bloating, early satiety, indigestion, or increased flatulence. No abdominal pain, nausea, vomiting, diarrhea, or constipation. Bladder: No dysuria, gross hematuria, urinary frequency, urinary urgency, or incontinence. Breast: No breast lumps, nipple d/c, overlying skin changes, redness or skin retraction. 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 Allergies and current medication updated:Yes EXAM: BP 114/72 Wt 204 lb (92.5kg) LMP 05/23/2023 GENERAL: pleasant, female in no apparent distress HEENT: Normocephalic, atraumatic, mucus membranes moist, and no lesions NECK: Supple, full range of motion, no adenopathy, and thyroid normal DERMATOLOGY: Normal, without lesions, non-icteric, and non-hirsute BREAST: soft, non-tender, symmetric, no dominant mass, normal nipple-areolar complex, no lymphadenopathy, and no nipple discharge CHEST: Normal inspiratory effort ABDOMEN: soft, non-tender, and no masses PELVIC: external genitalia normal, normal Bartholin's glands, urethra, Lawton's glands, no vulvar lesions, no cervical lesions, good vaginal support, physiologic discharge present, normal appearing perineal body and perianal region, scant dark uterine bleeding BIMANUAL: uterus normal size, shape and consistency, no adnexal masses, and non-tender NEURO: alert and oriented x3,exam grossly non-focal EXTREMITIES: normal ASSESSMENT AND PLAN: No diagnosis found. 1.)AUB/irregular menses: Discussed that irregular menses are likely related to anovulation. Prescribed Progesterone with use, risks, and benefits all reviewed in detail. Labs including TSH and Prolactin also ordered. 2.)Pap smear done today. 3.) TSH/Prolactin lengthy conversation re annovualtion/irregular menses and causes ftfc>45m Trinidad Richards MD By signing my name below, I, Yeni Hancock, KATHERINE Student, attest that this documentation has been prepared under the direction and in the presence of Dr. Richards Electronically signed, Yeni Hancock, KATHERINE Student, Axel June 21, 2023 9:11 AM [facility] 06-21-2023 History of Presen t illness Narrative Cedric Esquivel is a 27 year old female who presents for problem visit of AUB for 1 month. LMP was 05-23-23 with bleeding daily since, with max flow 18 tasmpons/24 hrs. Slowed now. Occ passage of clots and occ bruising . HPI: Comes in today and notes still bleeding since 05/23/23. Bleeding varies in heaviness and has been light all this week. Menarche at age 15. Notes history of irregular menses for which she took OCP in past. Also notes history of trichomonas in 2017. Bisexual. Regular/daily intercourse since November and w/o contraception. 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 No Known Problems Paternal Grandfather other (PCOS) Paternal Aunt other (pcos) Maternal Aunt Social History Tobacco Use Smoking status: Never Smokeless tobacco: Never Vaping Use Vaping Use: current everyday user Substance Use Topics Alcohol use: No Current Outpatient Medications Medication Sig Norethindrone-Eth Estradiol (ORTHO-NOVUM , ,) 1-35 mg-mcg per tablet Take 1 tablet by mouth once daily. (Patient not taking: Reported on 06/21/2023) No current facility-administered medications for this visit. Allergies As of Date: 06/21/2023 (No Known Allergies) Fully Assessed 06/21/2023 REVIEW OF SYSTEMS Abdomen: No bloating, early satiety, indigestion, or increased flatulence. No abdominal pain, nausea, vomiting, diarrhea, or constipation. Bladder: No dysuria, gross hematuria, urinary frequency, urinary urgency, or incontinence. Breast: No breast lumps, nipple d/c, overlying skin changes, redness or skin retraction. 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 Allergies and current medication updated:Yes EXAM: BP 114/72 Wt 204 lb (92.5kg) LMP 05/23/2023 GENERAL: pleasant, female in no apparent distress HEENT: Normocephalic, atraumatic, mucus membranes moist, and no lesions NECK: Supple, full range of motion, no adenopathy, and thyroid normal DERMATOLOGY: Normal, without lesions, non-icteric, and non-hirsute BREAST: soft, non-tender, symmetric, no dominant mass, normal nipple-areolar complex, no lymphadenopathy, and no nipple discharge CHEST: Normal inspiratory effort ABDOMEN: soft, non-tender, and no masses PELVIC: external genitalia normal, normal Bartholin's glands, urethra, Lawton's glands, no vulvar lesions, no cervical lesions, good vaginal support, physiologic discharge present, normal appearing perineal body and perianal region, scant dark uterine bleeding BIMANUAL: uterus normal size, shape and consistency, no adnexal masses, and non-tender NEURO: alert and oriented x3,exam grossly non-focal EXTREMITIES: normal ASSESSMENT AND PLAN: No diagnosis found. 1.)AUB/irregular menses: Discussed that irregular menses are likely related to anovulation. Prescribed Progesterone with use, risks, and benefits all reviewed in detail. Labs including TSH and Prolactin also ordered. 2.)Pap smear done today. 3.) TSH/Prolactin lengthy conversation re annovualtion/irregular menses and causes ftfc>45m Trinidad Richards MD By signing my name below, I, KATHERINE Natarajan Student, attest that this documentation has been prepared under the direction and in the presence of Dr. Richards Electronically signed, KATHERINE Natarajan Student, Axel June 21, 2023 9:11 AM documented in this encounter [facility] Evaluation note No assessment inform ation available [facility] Work Phone: Evaluation note Diagnosis Encounter for screening for malignant neoplasm of cervix- Primary Screening for malignant neoplasm of the cervix Irregular menses Irregular menstrual cycle [facility] Irregular menses- Primary Irregular menstrual cycle [facility] Diagnosis Missed menses- Primary test positive examination or test, positive result Vaginal discharge Leukorrhea, not specified as infective Cervical cancer screening Screening for malignant neoplasm of the cervix [facility] Bacterial vaginosis- Primary Unspecified vaginitis and vulvovaginitis Vaginal yeast infection Candidiasis of vulva and vagina Chlamydia infection Unspecified chlamydial infection, in conditions classified elsewhere and of unspecified site [facility] Diagnosis Chlamydial infection- Primary documented in this encounter [facility] Chief Complaint and Reason for Visit 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 Rosio Reynolds MD Primary Care Provider Active Team Status: Inactive Member Role Status Dates Dr. Olive Schreiber MD Emergency Provider Active Dr. Rosio Reynolds MD Primary Care Provider Active Goals (unrecognized section and content) Goals may be documented in a n alternate section Source Comments (unrecognize d section and content) In the event this informatio n is protected by the Federal Confidentiality of Alcohol and Drug Abuse Patient Records regulations: The Federal rules restrict any use of the information to criminally investigate or prosecute any alcohol or drug abuse patient.[facility] event this information is protected by the Federal Confidentiality of Alcohol and Drug Abuse Patient Records regulations: The Federal rules restrict any use of the information to criminally investigate or prosecute any alcohol or drug abuse patient.[facility] the event this information is protected by the Federal Confidentiality of Alcohol and Drug Abuse Patient Records regulations: The Federal rules restrict any use of the information to criminally investigate or prosecute any alcohol or drug abuse patient.[facility] Reason for Visit (unrecogniz ed section and content) Reason Comments Menstrual Problem Reason Comments Follow Up Reason Comments Amenorrhea LMP 03-24-2024 , pos itive test at home on 05-12-2024 , had some vaginal bleeding starting on 05-14-2024 lasted 4 days , toke another four test after the bleeding was done still was positive test INFORMATION SOURCE (unrecogn ized section and content) DATE CREATED AUTHOR 06/23/2023 [facility] DATE CREATED AUTHOR AUTHOR'S ORGANIZ ATION 07/13/2023 [facility] DATE CREATED AUTHOR AUTHOR'S ORGANKANDI ATION 06/06/2024 [facility] FOR RECORDS PERTAINING TO PATIENTS WHO ARE OR HAVE BEEN ENROLLED IN A CHEMICAL DEPENDENCY/SUBSTANCEABUSE PROGRAM, SOME INFORMATION MAY BE OMITTED. This clinical summary was aggregated from multiple sources. Caution should be exercised in using it in the provision of clinical care. This summary normalizes information from multiple sources, and as a consequence, information in this document may materially change the coding, format and clinical context of patient data. In addition, data may be omitted in some cases. CLINICAL DECISIONS SHOULD BE BASED ON THE PRIMARY CLINICAL RECORDS. [facility] [employer] [facility]. provides no warranty or guarantee of the accuracy or completeness of information in this document.
[2025-01-12 10:15] LABS: Mucous, Urine 0 SEEN /hpf (<or=2+); Red Blood Cells-Urine 0 SEEN /hpf (0-5)
[2025-01-12 10:17] LABS: Color, Urine Yellow (Yellow); Glucose, Dipstick Normal (Normal); Ketone-Dipstick 15 mg/dl (Negative); Leukocyte Esterase-Dipstick Negative /ul (Negative); Nitrite-Dipstick Negative (Negative); Occult Blood-Urine 250 /ul (Negative); Protein-Dipstick 30 mg/dl (Negative); Specific Gravity, Urine 1.030 (1.002-1.030); Urine Bilirubin Dipstick Negative (Negative)
[2025-01-12 10:19] LABS: Hematocrit 40.9 % (37-47); Hemoglobin 13.9 g/dL (12.0-15.0); Immature Granulocytes Count 0.020 X10^3/uL (0.0-0.0); Mean Corp Hgb Conc 34.0 g/dL (32-36); Mean Corpuscular Volume 83.0 fL (81-99); Mean Platelet Vol. 9.7 fl (6.2-12.0); NRBC Flagged by Analyzer 0 % (0-5); Platelet Count 310 K/mm3 (150-450); RBC Distribution Width CV 13.2 % (11.6-14.6); RBC Distribution Width SD 40.1 fl (35.1-43.9); Red Blood Count 4.93 M/mm3 (4.2-5.4); White Blood Count 11.9 K/mm3 (4.4-11.0)
[2025-01-12] MEDS: 0.9% Normal Saline (1000mL) 1,000 ML 1000 ML IV (10:19)
[2025-01-12 10:24] LABS: Squamous Epithelial Cells - UA 0-5 SEEN /hpf (5-10)
[2025-01-12 10:25] LABS: Internal QC Validated? YES +Cl - CLEAR BKGD; Pregnancy, Serum, hCG Quali. NEGATIVE Negative; Record Kit Lot#, Serum Preg. 0000980607
[2025-01-12 10:35] LABS: AST(SGOT) 21 U/L (<=31); Alanine Aminotransfer ALT/SGPT 27 U/L (<=34); Albumin, Serum 4.7 g/dL (3.5-5.0); Alkaline Phosphatase 70 U/L (35-104); Anion Gap 15 (5-15); BUN 13 mg/dL (4-19); BUN/Creat Ratio 15.7 RATIO (10-20); Calcium,Total 9.9 mg/dL (7.6-11.0); Carbon Dioxide 19.4 mmol/L (21.0-32.0); Chloride 106 mmol/L (98-108); Estimated Creatinine Clearance 120.23 ml/min (50-250); Globulin 2.9 g/dL (2.2-4.2); Glucose 130 mg/dL (70-99); Potassium 3.9 mmol/L (3.3-5.1)
[2025-01-12] MEDS: Ketorolac 30 MG/ML Syringe IV (11:37)
[2025-01-12 11:57] VITALS: BP 124/69; PULSE 83; RESP 16; O2SAT 100
--- NOTE | 2025-01-12 12:10 | CM.ED ---
Social Work Date of referral: 01/12/2025 Reason for referral: Primary Care Physician (PCP) not on file. Referred by: Social Work Identification Patient provided consent. Patient confirmed she does not currently have insurance or a PCP however stated her got a new job and their coverage is supposed to kick in with his work in two and a half weeks, at which point she has plans to get connected with a PCP. Food Tray Assembler also provided patient with a handout for the [facility] which patient accepted and expressed appreciation for. Olive Vance, DIRECTOR EXPERIMENTAL MEDICINE, CHIEF PROCUREMENT OFFICER
[2025-01-12 12:20] VITALS: BP 122/77; PULSE 60; RESP 14; TEMP 36.8; O2SAT 100
== END 2025-01-12 12:51 | disposition home or self-care (01) ==
PROVIDERS: Emergency Provider Emergency Medicine; Visit Provider Emergency Medicine
DX: N13.2 Hydronephrosis with renal and ureteral calculous obstruction (principal); F17.210 Nicotine dependence, cigarettes, uncomplicated; R03.0 Elevated blood-pressure reading, without diagnosis of hypertension; R11.2 Nausea with vomiting, unspecified
CPT/HCPCS: 74176; 80053; 81001; 84703; 85025; 96361; 96374; 96375; 99283; A4216; J2405